=== PATIENT | male | born 1930 | race Caucasian/White ===

== ENCOUNTER 2018-01-03 22:10 | Emergency (ER) | payer MEDICARE, BC ==
[2018-01-03 22:22] VITALS: BP 168/83
[2018-01-03] MEDS ORDERED: Alum Hydrox/Mag Hydrox/Simeth 30 ML, Lidocaine 2% 15 ML PO ONE ×2 (22:39)
--- NOTE | 2018-01-03 22:45 | EDM.PDOC ---
ED HPI GENERAL MEDICAL PROBLEM - General Chief Complaint: Abdominal Pain Stated Complaint: [facility] AMB Time Seen by Provider: 01/03/18 22:30 Source of Information: Reports: Patient, Family (spouse) History Limitations: Reports: No Limitations - History of Present Illness INITIAL COMMENTS - FREE TEXT/NARRATIVE: 87-year-old male brought to the ED per ambulance with complaint of epigastric pain rating up into his throat which is strongly burning in nature. By history he has chronic reflux esophagitis worse recently. He had not yet gone to bed tonight. He reports that the pain is there off and on all day. reports they did have rather spicy barbecued ribs for dinner. For supper he only had applesauce and some peaches. Pain seems to come and go. He states he often has to use Rolaids and Tums. He is on Prilosec 20 mg once daily. Has no known coronary disease or previous HI. He states the pain does not radiate through to his back. He does not drink alcohol. He does take aspirin daily. Is never been diagnosed with hiatal hernia. Onset: Today Onset Date: 01/03/18 Onset Time: 13:00 (Has chronic gastroesophageal reflux disease and has to use Tums and Rolaids frequently.) Duration: Hour(s):, Intermittent Location: Reports: Chest (Epigastric chest rating up into his throat. Not relieved by burping or belching.) Quality: Reports: Burning, Other (Occasional increased sharp stabbing pain.) Severity: Moderate Improves with: Reports: None Worsens with: Reports: None Context: Denies: Activity, Exercise, Lifting, Sick Contact, Trauma, Other Associated Symptoms: Reports: Chest Pain, Shortness of Breath. 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.) Upper Abdominal Pain Score (Numeric/FACES): 4 - Related Data Allergies Allergy/AdvReac Type Severity Reaction Status Date / Time cefaclor [From Ceclor] AdvReac Nausea and Verified 01/03/18 22:24 Vomiting celecoxib AdvReac Bleeding Verified 01/03/18 22:24 iprindole [Iprindole] AdvReac Diarrhea Verified 01/03/18 22:24 meloxicam AdvReac Nausea and Verified 01/03/18 22:24 Vomiting Home Meds: Home Meds Finasteride [Proscar] 5 mg PO DAILY 08/15/14 [History] Levothyroxine [Synthroid] 0.088 mcg PO DAILY 08/15/14 [History] Omeprazole 20 mg PO DAILY 08/15/14 [History] Terazosin [Hytrin] 2 mg PO BEDTIME 11/21/15 [History] amLODIPine [Norvasc] 5 mg PO DAILY 11/21/15 [History] Lactobacillus Acidophilus [Probiotic] 1 cap PO DAILY 06/06/16 [History] Docusate Sodium [Stool Softener] 100 mg PO BID 11/22/16 [History] Metoprolol Succinate [Toprol XL] 100 mg PO DAILY 11/22/16 [History] Famotidine [Pepcid AC] 20 mg PO DAILY #30 tablet 01/04/18 [Rx] Past Medical History HEENT History: Reports: Impaired Vision Cardiovascular History: Reports: High Cholesterol, Hypertension. Denies: Heart Failure Respiratory History: Reports: Pneumonia, Recurrent Gastrointestinal History: Reports: GERD Genitourinary History: Reports: BPH, Prostate Disorder Musculoskeletal History: Reports: Back Pain, Chronic Psychiatric History: Reports: Dementia Endocrine/Metabolic History: Reports: Hypothyroidism - Infectious Disease History Infectious Disease History: Reports: C-Difficile Social & Family History - Family History Cardiac: Reports: CAD Oncologic: Reports: Pancreatic - Tobacco Use Smoking Status *Q: Never Smoker Second Hand Smoke Exposure: No - Caffeine Use Caffeine Use: Reports: Coffee - Alcohol Use Days Per Week of Alcohol Use: 0 - Recreational Drug Use Recreational Drug Use: No - Living Situation & Occupation Living situation: Reports: , with Spouse, with Family Occupation: Retired ED ROS GENERAL - Review of Systems Review Of Systems: See Below Constitutional: Reports: Decreased Appetite. Denies: Fever, Chills, Malaise, Weakness, Fatigue, Weight Loss HEENT: Reports: No Symptoms Respiratory: Reports: Cough. Denies: Wheezing, Pleuritic Chest Pain, Sputum, Hemoptysis Cardiovascular: Reports: Chest Pain (Occasional cough with occasional white sputum production.), Blood Pressure Problem ( She has to present illness), Dyspnea on Exertion. Denies: Claudication ( hypertension usually well- controlled with medication. ), Edema, Lightheadedness, Orthopnea, Palpitations ( Chronically) Endocrine: Reports: Fatigue GI/Abdominal: Reports: Abdominal Pain (Epigastric pain at present. Rating up into the anterior chest.), Constipation, Other (GERD.). Denies: Diarrhea ( Occasional problems with constipation), Decreased Appetite, Difficulty Swallowing, Distension, Flatus, Hematemesis, Hematochezia, Melena, Mucous in Stool, Nausea : Reports: Frequency, Other Musculoskeletal: Reports: Neck Pain, Shoulder Pain, Back Pain (Has known BPH. Usually nocturia 3.), Joint Pain Skin: Reports: No Symptoms (Wheezing TIMES.) Neurological: Reports: Other (Early signs of dementia with short-term memory loss.) Psychiatric: Reports: No Symptoms Hematologic/Lymphatic: Reports: No Symptoms ED EXAM, GI/ABD - Physical Exam Exam: See Below Exam Limited By: No Limitations General Appearance: Alert, WD/WN, Anxious, Mild Distress, Other (Seems to be getting some spastic type pain in his chest which hurts quite bad at times.) Eyes: Bilateral: Normal Appearance (No jaundice.) Throat/Mouth: Normal Inspection, Normal Lips, Normal Oropharynx Head: Atraumatic, Normocephalic Neck: Normal Inspection, Supple, Non-Tender, Full Range of Motion. No: Carotid Bruit, Lymphadenopathy (L), Lymphadenopathy (R), Thyromegaly Respiratory/Chest: No Respiratory Distress, Lungs Clear, Normal Breath Sounds, Chest Non-Tender Cardiovascular: Regular Rate, Rhythm, No Edema, No Gallop, No Murmur, No Rub. No: Normal Peripheral Pulses GI/Abdominal Exam: Soft, Non-Tender (Hyperactive bowel sounds particularly in the upper abdomen.), No Organomegaly (Mildly obese), No Abnormal Bruit, No Mass , Abnormal Bowel Sounds, Other (Male) Exam: No Hernia Extremities: Normal Inspection, Non-Tender, No Pedal Edema, Other (Evidence of osteophytic changes in his knees and hips on exam.) Neurological: Alert, Oriented, CN II-XII Intact, Normal Cognition Psychiatric: Normal Affect, Anxious Skin Exam: Warm, Dry, Intact, Normal Color, No Rash EKG INTERPRETATION EKG Date: 01/03/18 Time: 22:20 Rhythm: NSR Rate (Beats/Min): 74 [place]: Normal P-Wave: Present (First-degree AV block) QRS: Other (Early R-wave transition consider right ventricular hypertrophy/ septal hypertrophy pattern. There is Q-wave in 3 and aVF. Cannot rule out an old inferior wall myocardial infarction.) ST-T: Other (T-wave inversion in lead 3 and flattening in aVF. Nonspecific) QT: Normal EKG Interpretation Comments: Abnormal ECG Course - Vital Signs Last Recorded V/S: Last Vital Signs Temp 36.3 C 01/03/18 22:13 Pulse 75 01/03/18 22:13 Resp 15 01/03/18 22:13 BP 168/83 H 01/03/18 22:13 Pulse Ox 95 01/03/18 22:13 - Orders/Labs/Meds Orders: Active Orders 24 hr Category Date Time Status EKG Documentation Completion [RC] STAT Care 01/03/18 22:38 Active Chest 1V Frontal [CR] Stat Exams 01/03/18 22:38 Taken URINALYSIS W/MICROSCOPIC [UA W/MICROSCOPIC] [URIN] Stat Lab 01/04/18 00:16 Results Labs: Laboratory Tests 01/03/18 01/03/18 01/03/18 Range/Units 22:46 22:46 22:46 WBC 8.54 (4.23-9.07) K/mm3 RBC 4.74 (4.63-6.08) M/mm3 Hgb 14.7 (13.7-17.5) gm/L Hct 44.3 (40.1-51.0) % MCV 93.5 H (79.0-92.2) fl MCH 31.0 (25.7-32.2) pg MCHC 33.2 (32.2-35.5) g/dl RDW Std Deviation 46.1 H (35.1-43.9) fL Plt Count 167 (163-337) K/mm3 MPV 10.8 (9.4-12.3) fl Neutrophils % (Manual) 59 (40-60) % Band Neutrophils % 0 (0-10) % Lymphocytes % (Manual) 21 (20-40) % Atypical Lymphs % 3 % Monocytes % (Manual) 7 (2-10) % Eosinophils % (Manual) 10 H (0.8-7.0) % Basophils % (Manual) 0 L (0.2-1.2) Platelet Estimate Adequate Plt Morphology Comment Normal RBC Morph Comment Normal Sodium 144 (136-145) mEq/L Potassium 4.2 (3.5-5.1) mEq/L Chloride 108 H (98-107) mEq/L Carbon Dioxide 25 (21-32) mEq/L Anion Gap 15.2 H (5-15) BUN 36 H (7-18) mg/dL Creatinine 1.7 H (0.7-1.3) mg/dL Est Cr Clr Drug Dosing 28.50 mL/min Estimated GFR (MDRD) 38 (>60) mL/min BUN/Creatinine Ratio 21.2 H (14-18) Glucose 97 (83-115) mg/dL Calcium 9.4 (8.5-10.1) mg/dL Magnesium 2.4 (1.8-2.4) mg/dl Total Bilirubin 0.3 (0.2-1.0) mg/dL AST 23 (15-37) U/L ALT 22 (16-63) U/L Alkaline Phosphatase 109 (46-116) U/L CK-MB (CK-2) 1.2 (0-3.6) ng/ml Troponin I < 0.017 (0.00-0.056) ng/mL NT-Pro-B Natriuret Pep 166 (0-450) pg/mL Total Protein 7.6 (6.4-8.2) g/dl Albumin 3.8 (3.4-5.0) g/dl Globulin 3.8 gm/dL Albumin/Globulin Ratio 1.0 (1-2) Lipase 158 (73-393) U/L Urine Color (Yellow) Urine Appearance (Clear) Urine pH (5.0-8.0) Ur Specific Plain (1.005-1.030) Urine Protein (Negative) Urine Glucose (UA) (Negative) Urine Ketones (Negative) Urine Occult Blood (Negative) Urine Nitrite (Negative) Urine Bilirubin (Negative) Urine Urobilinogen (0.2-1.0) Ur Leukocyte Esterase (Negative) H. pylori IgG Antibody Negative (NEGATIVE) 01/03/18 Range/Units 23:52 WBC (4.23-9.07) K/mm3 RBC (4.63-6.08) M/mm3 Hgb (13.7-17.5) gm/L Hct (40.1-51.0) % MCV (79.0-92.2) fl MCH (25.7-32.2) pg MCHC (32.2-35.5) g/dl RDW Std Deviation (35.1-43.9) fL Plt Count (163-337) K/mm3 MPV (9.4-12.3) fl Neutrophils % (Manual) (40-60) % Band Neutrophils % (0-10) % Lymphocytes % (Manual) (20-40) % Atypical Lymphs % % Monocytes % (Manual) (2-10) % Eosinophils % (Manual) (0.8-7.0) % Basophils % (Manual) (0.2-1.2) Platelet Estimate Plt Morphology Comment RBC Morph Comment Sodium (136-145) mEq/L Potassium (3.5-5.1) mEq/L Chloride (98-107) mEq/L Carbon Dioxide (21-32) mEq/L Anion Gap (5-15) BUN (7-18) mg/dL Creatinine (0.7-1.3) mg/dL Est Cr Clr Drug Dosing mL/min Estimated GFR (MDRD) (>60) mL/min BUN/Creatinine Ratio (14-18) Glucose (83-115) mg/dL Calcium (8.5-10.1) mg/dL Magnesium (1.8-2.4) mg/dl Total Bilirubin (0.2-1.0) mg/dL AST (15-37) U/L ALT (16-63) U/L Alkaline Phosphatase (46-116) U/L CK-MB (CK-2) (0-3.6) ng/ml Troponin I (0.00-0.056) ng/mL NT-Pro-B Natriuret Pep (0-450) pg/mL Total Protein (6.4-8.2) g/dl Albumin (3.4-5.0) g/dl Globulin gm/dL Albumin/Globulin Ratio (1-2) Lipase (73-393) U/L Urine Color Yellow (Yellow) Urine Appearance Clear (Clear) Urine pH 5.5 (5.0-8.0) Ur Specific Plain 1.025 (1.005-1.030) Urine Protein Negative (Negative) Urine Glucose (UA) Negative (Negative) Urine Ketones Negative (Negative) Urine Occult Blood Negative (Negative) Urine Nitrite Negative (Negative) Urine Bilirubin Negative (Negative) Urine Urobilinogen 0.2 (0.2-1.0) Ur Leukocyte Esterase Trace H (Negative) H. pylori IgG Antibody (NEGATIVE) Meds: Medications Discontinued Medications Generic Name Dose Route Start Last Admin Trade Name Junito PRN Reason Stop Dose Admin Al Hydroxide/Mg Hydroxide 30 0 ml 01/03/18 22:39 01/03/18 22:53 ml/ Lidocaine HCl 15 ml PO 01/03/18 22:40 45 ml ONETIME ONE Administration Dicyclomine HCl 20 mg 01/03/18 23:46 01/04/18 00:09 Bentyl PO 01/03/18 23:47 20 mg ONETIME ONE Administration Famotidine 20 mg 01/03/18 23:46 01/04/18 00:09 Pepcid PO 01/03/18 23:47 20 mg ONETIME ONE Administration Famotidine Confirm 01/04/18 00:21 Pepcid Administered 01/04/18 00:22 Dose 20 mg .ROUTE .STK-MED ONE Famotidine Confirm 01/04/18 00:22 Pepcid Administered 01/04/18 00:23 Dose 20 mg .ROUTE .STK-MED ONE Hyoscyamine 0.125 mg 01/03/18 23:14 01/03/18 23:19 Hyomax-Sl SL 01/03/18 23:15 0.125 mg ONETIME ONE Administration Sucralfate 1 gm 01/03/18 23:53 01/04/18 00:09 Carafate PO 01/03/18 23:54 1 gm ONETIME ONE Administration - Radiology Interpretation Free Text/Narrative:: 87-year-old male presents to the ED with retrosternal chest burning discomfort that seems to start in the epigastrium radiating up to the throat. History suggests that it's been present off and on most of the afternoon and worse tonight. He did have barbecued ribs for dinner today. By history has a strong history of GERD and has to take Tums and Rolaids quite frequently. He has chronic hypertension ever smoker. ECG does not show any acute signs of ischemia. Just perhaps right ventricular hypertrophy/septal hypertrophy pattern from chronic hypertension. - Re-Assessments/Exams Free Text/Narrative Re-Assessment/Exam: 01/03/18 23:15 He reports that the burning discomfort in his central chest is markedly improved after GI cocktail but not gone. I will give him Levsin sublingually 1.125 mg to see if it alleviates esophageal spasm. If it does then Bentyl 20 mg by mouth may alleviate spasm further. Chest x-ray is pending. 01/03/18 23:33 port chest x-ray reveals clear lung lopez. Cardiac silhouette is within normal limits. 01/03/18 23:36 Labs reveal a normal white count at 8.54 with normal differential 59% neutrophils no bands. Hemoglobin is 14.7 with hematocrit of 44.3. MCV is mildly elevated at 93.5. Platelet count is 167,000. There is notation of 21% lymphocytes and 3% atypical lymphocytes. Also 10% eosinophils which is abnormal. Sodium is 144 with a potassium of 4.2. Chloride is 108 with a bicarbonate of 25. Anion gap is 15.2. BUNs elevated at 36 with a creatinine of 1.7. GFR is 38. Glucose is 97 calcium 9.4 magnesium normal at 2.4. Liver function normal. CK-MB is 1.2 troponin I is less than 0.017. BNP is 166. Lipase normal at 150 8H pylori antibody was negative. 01/03/18 23:45 chest pain is completely gone. It appears that the Levsin sublingually did help relieve the esophageal spasm. I will give him Bentyl 20 mg by mouth now the hopes of alleviating overnight. Also will give Pepcid 20mg po. 01/03/18 23:53 heartburn is coming back. I will try sucralfate suspension 1 g by mouth and see how effective this isn't relieving his esophagitis. Departure - Departure Time of Disposition: 00:31 Disposition: Home, Self-Care 01 Condition: Fair Clinical Impression: Non-cardiac chest pain, GERD with esophagitis - Discharge Information Prescriptions: Famotidine [Pepcid AC] 20 mg PO DAILY #30 tablet Instructions: Nonspecific Chest Pain, [id number], Gastroesophageal Reflux Disease, Adult Referrals: PCP,None [Ordering Only Provider] - Forms: ED Department Discharge Additional Instructions: Evaluation in the emergency room tonight in regards to epigastric pain that's radiating up into your throat. This has a strong burning consistency and has been off and on most of the day. History of gastroesophageal reflux disease with the use of Prilosec 20 mg every morning. Evaluations carried out through the emergency room revealed no evidence of heart related disease or any signs of heart failure. Lungs were completely clear on auscultation and on x-ray. Symptoms improved with treatment with GI cocktail and Levsin under the tongue to take away esophageal spasm. Treatment at home is to be continued Prilosec 20 mg in the morning and Pepcid before meals every night at bedtime to try and help heal the food pipe from reflux. I suspect you have a hiatal hernia which means you're vitamins that hold the stomach in place on the diaphragm are lax and the valve the The stomach and food pipe is open most the time versus being closed and only open to let food go through. What is open most the time acid can reflux up and down the food pipe at will particularly at nighttime while were resting. This burn to the lining of the food pipe it causes significant inflammation and spasm of the food pipe which causes bad chest pains. May use Tums and Rolaids as needed during the daytime. Suggest no food or very minimal fluid intake for 3 hours before going to bed. May want to see about getting the head of the bed raised about 4 inches or 2 2 x 4 hours as this little bit of slope can sometimes alleviate reflux disease during the night. If symptoms persist suggest follow-up with Dr. Lopez who can arrange for a upper GI endoscopy or scoping. - My Orders Last 24 Hours: My Active Orders 01/03/18 22:38 EKG Documentation Completion [RC] STAT Chest 1V Frontal [CR] Stat 01/04/18 00:16 URINALYSIS W/MICROSCOPIC [UA W/MICROSCOPIC] [URIN] Stat - Assessment/Plan Last 24 Hours: My Active Orders 01/03/18 22:38 EKG Documentation Completion [RC] STAT Chest 1V Frontal [CR] Stat 01/04/18 00:16 URINALYSIS W/MICROSCOPIC [UA W/MICROSCOPIC] [URIN] Stat
[2018-01-03] MEDS ORDERED: Hyoscyamine 0.125 MG Tab.SL SL ONE (23:14)
[2018-01-03] MEDS ORDERED: Famotidine 20 MG Tab PO ONE (23:46)
[2018-01-03] MEDS ORDERED: Dicyclomine 10 MG Cap PO ONE (23:46)
[2018-01-03] MEDS ORDERED: Sucralfate Suspension 1 GM/10 ML Cup PO ONE (23:53)
[2018-01-04] MEDS ORDERED: Famotidine 20 MG/2 ML SDV ONE (00:21)
[2018-01-04] MEDS ORDERED: Famotidine 20 MG Tab ONE (00:22)
--- NOTE | 2018-01-04 07:13 | CR ---
Chest: Portable view of the chest was obtained. Comparison: Prior chest x-ray of 11/22/16. Heart size is normal. Tortuous thoracic aorta is seen. Linear scar is seen within the left mid to lower lung. Lungs otherwise are clear. Slight scoliosis is noted within the spine. Bony structures are osteopenic. Impression: 1. Nothing acute is seen on portable chest x-ray. Diagnostic code #2
== END 2018-01-04 00:33 | disposition home or self-care (01) ==
LOC: JD.ED 22:10
DX: K21.0 Gastro-esophageal reflux disease with esophagitis (principal); R07.89 Other chest pain; E78.00 Pure hypercholesterolemia, unspecified; I10 Essential (primary) hypertension; E03.9 Hypothyroidism, unspecified; Z79.82 Long term (current) use of aspirin; Z88.1 Allergy status to other antibiotic agents; Z88.8 Allergy status to other drugs, medicaments and biological substances; Z79.899 Other long term (current) drug therapy
CPT/HCPCS: 36415; 71045; 71045-26; 80053; 81001; 82553; 83690; 83735; 83880; 84484; 85025; 86677; 93005; 93010; 99285; 99285-25; A9270-GY

== ENCOUNTER 2018-01-08 03:40 | Emergency (ER) | payer MEDICARE, BC ==
[2018-01-08 03:47] VITALS: BP 150/76
--- NOTE | 2018-01-08 04:00 | EDM.PDOC ---
ED HPI GENERAL MEDICAL PROBLEM - General Chief Complaint: Chest Pain Stated Complaint: [facility] Time Seen by Provider: 01/08/18 03:53 Source of Information: Reports: Patient, EMS History Limitations: Reports: Altered Mental Status (Dementia) - History of Present Illness INITIAL COMMENTS - FREE TEXT/NARRATIVE: The patient is brought by EMS with a complaint of upper left chest pain. The patient was not able to tell me when it began, however, the patient's , who arrived about 25 minutes after the patient did, tells me that it developed around 03:00 this morning, after the patient had returned to bed, and after he had coughed. The patient states that the pain "comes and goes", and the patient's states that she believes that he has had similar pain in the past. He is unable to characterize the pain, or whether it is modifiable. He denies associated symptoms, although I note that he is holding an emesis bag. The patient does not have a known history of coronary disease, but he does have a history of GERD. - Related Data Allergies Allergy/AdvReac Type Severity Reaction Status Date / Time cefaclor [From Ceclor] AdvReac Nausea and Verified 01/08/18 03:47 Vomiting celecoxib AdvReac Bleeding Verified 01/08/18 03:47 iprindole [Iprindole] AdvReac Diarrhea Verified 01/08/18 03:47 meloxicam AdvReac Nausea and Verified 01/08/18 03:47 Vomiting Home Meds: Home Meds Finasteride [Proscar] 5 mg PO DAILY 08/15/14 [History] Levothyroxine [Synthroid] 0.088 mcg PO DAILY 08/15/14 [History] Omeprazole 20 mg PO DAILY 08/15/14 [History] Terazosin [Hytrin] 2 mg PO BEDTIME 11/21/15 [History] amLODIPine [Norvasc] 5 mg PO DAILY 11/21/15 [History] Lactobacillus Acidophilus [Probiotic] 1 cap PO DAILY 06/06/16 [History] Docusate Sodium [Stool Softener] 100 mg PO BID 11/22/16 [History] Metoprolol Succinate [Toprol XL] 100 mg PO DAILY 11/22/16 [History] Famotidine [Pepcid AC] 20 mg PO DAILY #30 tablet 01/04/18 [Rx] Past Medical History HEENT History: Reports: Impaired Vision Cardiovascular History: Reports: High Cholesterol, Hypertension Gastrointestinal History: Reports: GERD Genitourinary History: Reports: BPH Musculoskeletal History: Reports: Back Pain, Chronic Neurological History: Reports: Alzheimers Disease Endocrine/Metabolic History: Reports: Hypothyroidism - Infectious Disease History Infectious Disease History: Reports: C-Difficile Social & Family History - Family History Cardiac: Reports: CAD Oncologic: Reports: Pancreatic - Tobacco Use Smoking Status *Q: Never Smoker Second Hand Smoke Exposure: No - Caffeine Use Caffeine Use: Reports: Coffee - Alcohol Use Alcohol Use History: No Days Per Week of Alcohol Use: 0 - Recreational Drug Use Recreational Drug Use: No - Living Situation & Occupation Living situation: Reports: , with Spouse, with Family Occupation: Retired ED ROS GENERAL - Review of Systems Review Of Systems: Unable To Obtain ED EXAM, GENERAL - Physical Exam Exam: See Below Exam Limited By: No Limitations General Appearance: Alert, WD/WN, Other (Kept eyes clenched shut) Ears: Normal External Exam, Hearing Grossly Normal Nose: Normal Inspection, No Blood Throat/Mouth: Normal Inspection, Normal Lips, Normal Voice, No Airway Compromise Head: Atraumatic, Normocephalic Neck: Normal Inspection, Full Range of Motion Respiratory/Chest: No Respiratory Distress, Lungs Clear, Normal Breath Sounds, No Accessory Muscle Use, Other (Reproducible tenderness to palpation of the left chest, at approximately the third or fourth intercostal space, about 1 to 2 cm to the left of the midclavicular line. No visible abnormality to this area , such as swelling, erythema, ecchymosis, or abrasion. No rub on auscultation to this area.) Cardiovascular: Normal Peripheral Pulses, Regular Rate, Rhythm, No Gallop, No JVD, No Murmur, No Rub Peripheral Pulses: 4+: Radial (L), Radial (R) GI/Abdominal: Normal Bowel Sounds, Soft, Non-Tender, No Organomegaly, No Distention, No Abnormal Bruit, No Mass (Male) Exam: Deferred Rectal (Males) Exam: Deferred Extremities: Normal Inspection, Normal Range of Motion, No Pedal Edema, Normal Capillary Refill Neurological: Alert, No Motor/Sensory Deficits Skin Exam: Warm, Dry, Intact, Normal Color, No Rash EKG INTERPRETATION EKG Date: 01/08/18 Time: 03:50 Rhythm: NSR Rate (Beats/Min): 67 [place]: Normal P-Wave: Present (1st degree AVB) QRS: Normal ST-T: Normal QT: Normal Comparison: No Change (01/03/2018) Course - Vital Signs Last Recorded V/S: Last Vital Signs Temp 36.6 C 01/08/18 03:43 Pulse 67 01/08/18 03:43 Resp 20 01/08/18 03:43 BP 150/76 H 01/08/18 03:43 Pulse Ox 91 L 01/08/18 03:43 - Orders/Labs/Meds Orders: Active Orders 24 hr Category Date Time Status EKG Documentation Completion [RC] STAT Care 01/08/18 03:55 Active Chest 1V Frontal [CR] Stat Exams 01/08/18 03:58 Taken Labs: Laboratory Tests 01/08/18 01/08/18 Range/Units 03:44 03:44 WBC 7.53 (4.23-9.07) K/mm3 RBC 4.28 L (4.63-6.08) M/mm3 Hgb 13.5 L (13.7-17.5) gm/L Hct 40.0 L (40.1-51.0) % MCV 93.5 H (79.0-92.2) fl MCH 31.5 (25.7-32.2) pg MCHC 33.8 (32.2-35.5) g/dl RDW Std Deviation 46.5 H (35.1-43.9) fL Plt Count 158 L (163-337) K/mm3 MPV 11.4 (9.4-12.3) fl Neutrophils % (Manual) 58 (40-60) % Band Neutrophils % 0 (0-10) % Lymphocytes % (Manual) 28 (20-40) % Atypical Lymphs % 0 % Monocytes % (Manual) 4 (2-10) % Eosinophils % (Manual) 10 H (0.8-7.0) % Basophils % (Manual) 0 L (0.2-1.2) Platelet Estimate Decreased RBC Morph Comment Normal Sodium 142 (136-145) mEq/L Potassium 4.0 (3.5-5.1) mEq/L Chloride 109 H (98-107) mEq/L Carbon Dioxide 23 (21-32) mEq/L Anion Gap 14.0 (5-15) BUN 24 H (7-18) mg/dL Creatinine 1.5 H (0.7-1.3) mg/dL Est Cr Clr Drug Dosing 32.30 mL/min Estimated GFR (MDRD) 44 (>60) mL/min BUN/Creatinine Ratio 16.0 (14-18) Glucose 99 (83-115) mg/dL Calcium 8.6 (8.5-10.1) mg/dL Total Bilirubin 0.4 (0.2-1.0) mg/dL AST 20 (15-37) U/L ALT 21 (16-63) U/L Alkaline Phosphatase 99 (46-116) U/L Troponin I < 0.017 (0.00-0.056) ng/mL Total Protein 6.6 (6.4-8.2) g/dl Albumin 3.3 L (3.4-5.0) g/dl Globulin 3.3 gm/dL Albumin/Globulin Ratio 1.0 (1-2) Meds: Medications Discontinued Medications Generic Name Dose Route Start Last Admin Trade Name Arsalanq PRN Reason Stop Dose Admin Acetaminophen 650 mg 01/08/18 04:13 01/08/18 04:18 Tylenol Solution PO 01/08/18 04:14 650 mg ONETIME ONE Administration - Re-Assessments/Exams Free Text/Narrative Re-Assessment/Exam: 01/08/18 04:17 Portable chest radiograph appears to be grossly normal. Cardiac silhouette is within normal limits. No pulmonary vascular congestion. No pleural effusions. No focal infiltrate. No pneumothorax. Formal read per the Radiologist pending. 01/08/18 05:03 Test results discussed with the patient and his . Today's workup is unremarkable. Because the patient's left-sided chest pain is reproducible to palpation, it appears to be musculoskeletal in etiology. I am recommending over- the-counter Tylenol or ibuprofen as needed. Departure - Departure Time of Disposition: 05:03 Disposition: Home, Self-Care 01 Condition: Good Clinical Impression: Musculoskeletal chest pain - Discharge Information Forms: ED Department Discharge Additional Instructions: Mr. Tavarez was seen in the emergency room for left-sided chest pain. Workup in the ER included blood work, an ECG, and a chest x-ray. His entire workup was unremarkable. He has not suffered a heart attack. He does not have a collapsed lung or pneumonia. His pain was reproducible by pressing on the area where it is sore, indicating that his pain is musculoskeletal in etiology. Give [id number] Tylenol or ibuprofen as needed for discomfort. If any other problems, please do not hesitate to return Mr. Tavarez to the ER. - My Orders Last 24 Hours: My Active Orders 01/08/18 03:55 EKG Documentation Completion [RC] STAT 01/08/18 03:58 Chest 1V Frontal [CR] Stat - Assessment/Plan Last 24 Hours: My Active Orders 01/08/18 03:55 EKG Documentation Completion [RC] STAT 01/08/18 03:58 Chest 1V Frontal [CR] Stat
[2018-01-08] MEDS ORDERED: Acetaminophen Susp 325 MG/10.15 ML UD Cup PO ONE (04:13)
--- NOTE | 2018-01-08 15:38 | CR ---
Chest: Portable view of the chest was obtained. Comparison: Prior chest x-ray of 01/03/18. Heart size at the upper limits of normal. Tortuous thoracic aorta is seen. Lungs are clear. Bony structures are osteopenic. Impression: 1. Incidental findings. Nothing acute is appreciated on portable chest x-ray. Diagnostic code #2
== END 2018-01-08 05:20 | disposition home or self-care (01) ==
LOC: JD.ED 03:40
DX: R07.89 Other chest pain (principal); I10 Essential (primary) hypertension; E78.00 Pure hypercholesterolemia, unspecified; K21.9 Gastro-esophageal reflux disease without esophagitis; G30.9 Alzheimer's disease, unspecified; E03.9 Hypothyroidism, unspecified; Z79.899 Other long term (current) drug therapy; Z88.1 Allergy status to other antibiotic agents; Z88.8 Allergy status to other drugs, medicaments and biological substances
CPT/HCPCS: 36415; 71045; 80053; 84484; 85025; 93005; 99285; A9270

== ENCOUNTER 2018-04-19 23:02 | Inpatient (IN) | payer MEDICARE, BC ==
[2018-04-19] MEDS ORDERED: Sodium Chloride 0.9% 10 ML Syringe FLUSH PRN (23:36)
[2018-04-19] MEDS ORDERED: Famotidine 20 MG/2 ML SDV IVPUSH ONE (23:36)
[2018-04-19] MEDS ORDERED: methylPREDNISolone Sodium Succinate 125 MG/2 ML SDV IVPUSH ONE (23:36)
--- NOTE | 2018-04-19 23:37 | EDM.PDOC ---
ED HPI GENERAL MEDICAL PROBLEM - General Chief Complaint: Respiratory Problem Stated Complaint: COUGH Time Seen by Provider: 04/19/18 23:25 Source of Information: Reports: Patient, Family, RN Notes Reviewed (Spouse) - History of Present Illness INITIAL COMMENTS - FREE TEXT/NARRATIVE: 87-year-old gentleman has been brought in by his for evaluation and treatment of severe cough. Patient does have some altered mental status, is very sleepy at time of my initial exam, not answering questions much, just wants to lay there with his eyes closed, history is obtained primarily from his who is his primary manager [employer]. She states that he did develop pneumonia about 5 or 6 weeks ago back in February and has been coughing ever since. He was seen at the clinic about 5 or 6 days ago and was not found to have pneumonia at that time. He has been taking some cough medication with codeine but this evening that is not helped. He does have history of acid reflux. He has been taking omeprazole in the morning, Pepcid in the evening but his states that he often will spit out his medications she is not sure that he is getting the full benefit of that. He has been eating and drinking relatively well but did not eat or drink as well this evening. He has not been running a fever. He did have an episode of diarrhea yesterday but none today. He has not been vomiting. Lower Chest Pain Score (Numeric/FACES): 7 - Related Data Allergies Allergy/AdvReac Type Severity Reaction Status Date / Time cefaclor [From Ceclor] AdvReac Nausea and Verified 04/19/18 23:19 Vomiting celecoxib AdvReac Bleeding Verified 04/19/18 23:19 iprindole [Iprindole] AdvReac Diarrhea Verified 04/19/18 23:19 meloxicam AdvReac Nausea and Verified 04/19/18 23:19 Vomiting Home Meds: Home Meds Finasteride [Proscar] 5 mg PO DAILY 08/15/14 [History] Levothyroxine [Synthroid] 0.88 mcg PO DAILY 08/15/14 [History] Omeprazole 20 mg PO DAILY 08/15/14 [History] Terazosin [Hytrin] 2 mg PO BEDTIME 11/21/15 [History] amLODIPine [Norvasc] 5 mg PO DAILY 11/21/15 [History] Lactobacillus Acidophilus [Probiotic] 1 cap PO DAILY 06/06/16 [History] Docusate Sodium [Stool Softener] 100 mg PO BID 11/22/16 [History] Metoprolol Succinate [Toprol XL] 100 mg PO DAILY 11/22/16 [History] Famotidine [Pepcid AC] 20 mg PO DAILY #30 tablet 01/04/18 [Rx] Past Medical History HEENT History: Reports: Impaired Vision Cardiovascular History: Reports: High Cholesterol, Hypertension Respiratory History: Reports: Bronchitis, Recurrent, Pneumonia, Recurrent Gastrointestinal History: Reports: GERD Genitourinary History: Reports: BPH Musculoskeletal History: Reports: Back Pain, Chronic Neurological History: Reports: Alzheimers Disease Psychiatric History: Reports: Dementia Endocrine/Metabolic History: Reports: Hypothyroidism - Infectious Disease History Infectious Disease History: Reports: C-Difficile Social & Family History - Family History Cardiac: Reports: CAD Oncologic: Reports: Pancreatic - Tobacco Use Smoking Status *Q: Never Smoker Second Hand Smoke Exposure: No - Caffeine Use Caffeine Use: Reports: Coffee - Recreational Drug Use Recreational Drug Use: No - Living Situation & Occupation Living situation: Reports: , with Spouse, with Family Occupation: Retired ED ROS GENERAL - Review of Systems Review Of Systems: See Below Constitutional: Denies: Fever, Chills HEENT: Denies: Sinus Problem, Throat Pain Respiratory: Reports: Shortness of Breath, Wheezing (Intermittent), Cough ( intermittentsevere, frequent ). Denies: Sputum Cardiovascular: Reports: Chest Pain (He has been having heartburn type discomfort frequently lower mid chest) GI/Abdominal: Reports: Abdominal Pain (Mild upper abdominal discomfort), Diarrhea (Yesterday), Decreased Appetite. Denies: Vomiting Neurological: Reports: Difficulty Walking (Generalized patient does walk with a walker but noted to be quite unsteady on his feet coming into the ED), Weakness ED EXAM, GENERAL - Physical Exam Exam: See Below General Appearance: Other (Patient mostly just lying with his eyes closed at time of my initial exam, it is around 11:00 in the evening, his states "he is worn out from coughing") Eye Exam: Bilateral Eye: PERRL Throat/Mouth: Normal Inspection Head: Atraumatic Neck: Supple Respiratory/Chest: Respiratory Distress (Mild tachypnea), Wheezing. No: Rhonchi (Mild intermittent) Cardiovascular: Regular Rate, Rhythm GI/Abdominal: Soft, Non-Tender. No: Guarding Back Exam: No: CVA Tenderness (L), CVA Tenderness (R) Extremities: Normal Inspection, Pedal Edema (Very mild left leg) Neurological: No Motor/Sensory Deficits Skin Exam: Warm, Dry, Normal Color EKG INTERPRETATION EKG Date: 04/20/18 Rhythm: NSR [place]: Normal P-Wave: Present QRS: Normal ST-T: Normal Course - Vital Signs Last Recorded V/S: Last Vital Signs Temp 97.6 F 04/19/18 23:08 Pulse 84 04/19/18 23:08 Resp 20 04/19/18 23:08 BP 141/117 H 04/19/18 23:08 Pulse Ox 93 L 04/20/18 01:00 - Orders/Labs/Meds Orders: Active Orders 24 hr Category Date Time Status EKG 12 Lead [EKG Documentation Completion] [RC] STAT Care 04/20/18 00:34 Active Peripheral IV Care [RC] . DIRECTED Care 04/19/18 23:36 Active RT Aerosol Therapy [RC] ASDIRECTED Care 04/20/18 00:54 Active Chest 1V Frontal [CR] Stat Exams 04/19/18 23:35 Taken Sodium Chloride 0.9% [Saline Flush] Med 04/19/18 23:36 Active 10 ml FLUSH ASDIRECTED PRN Peripheral IV Insertion Adult [OM.PC] Stat Oth 04/19/18 23:35 Ordered Medication Orders Sodium Chloride (Saline Flush) 10 ml FLUSH ASDIRECTED PRN PRN Reason: Keep Vein Open Last Admin: 04/19/18 23:46 Dose: 10 ml Labs: Laboratory Tests 04/19/18 04/19/18 04/19/18 Range/Units 23:45 23:45 23:45 WBC 10.12 H (4.23-9.07) K/mm3 RBC 4.09 L (4.63-6.08) M/mm3 Hgb 12.9 L (13.7-17.5) gm/L Hct 39.3 L (40.1-51.0) % MCV 96.1 H (79.0-92.2) fl MCH 31.5 (25.7-32.2) pg MCHC 32.8 (32.2-35.5) g/dl RDW Std Deviation 50.0 H (35.1-43.9) fL Plt Count 166 (163-337) K/mm3 MPV 11.5 (9.4-12.3) fl Neutrophils % (Manual) 67 H (40-60) % Band Neutrophils % 0 (0-10) % Lymphocytes % (Manual) 17 L (20-40) % Atypical Lymphs % 1 % Monocytes % (Manual) 10 (2-10) % Eosinophils % (Manual) 5 (0.8-7.0) % Basophils % (Manual) 0 L (0.2-1.2) Platelet Estimate Adequate Plt Morphology Comment Normal Anisocytosis 1+ slight Microcytosis 1+ slight Macrocytosis 1+ slight RBC Morph Comment Abnormal Sodium 138 (136-145) mEq/L Potassium 4.7 (3.5-5.1) mEq/L Chloride 106 (98-107) mEq/L Carbon Dioxide 21 (21-32) mEq/L Anion Gap 15.7 H (5-15) BUN 55 H (7-18) mg/dL Creatinine 2.3 H (0.7-1.3) mg/dL Est Cr Clr Drug Dosing 21.07 mL/min Estimated GFR (MDRD) 27 (>60) mL/min BUN/Creatinine Ratio 23.9 H (14-18) Glucose 127 H (83-115) mg/dL Calcium 9.3 (8.5-10.1) mg/dL Total Bilirubin 0.4 (0.2-1.0) mg/dL AST 36 (15-37) U/L ALT 36 (16-63) U/L Alkaline Phosphatase 102 (46-116) U/L Troponin I (0.00-0.056) ng/mL C-Reactive Protein 0.2 (<1.0) mg/dL NT-Pro-B Natriuret Pep (0-450) pg/mL Total Protein 6.9 (6.4-8.2) g/dl Albumin 3.6 (3.4-5.0) g/dl Globulin 3.3 gm/dL Albumin/Globulin Ratio 1.1 (1-2) 04/19/18 04/19/18 Range/Units 23:45 23:45 WBC (4.23-9.07) K/mm3 RBC (4.63-6.08) M/mm3 Hgb (13.7-17.5) gm/L Hct (40.1-51.0) % MCV (79.0-92.2) fl MCH (25.7-32.2) pg MCHC (32.2-35.5) g/dl RDW Std Deviation (35.1-43.9) fL Plt Count (163-337) K/mm3 MPV (9.4-12.3) fl Neutrophils % (Manual) (40-60) % Band Neutrophils % (0-10) % Lymphocytes % (Manual) (20-40) % Atypical Lymphs % % Monocytes % (Manual) (2-10) % Eosinophils % (Manual) (0.8-7.0) % Basophils % (Manual) (0.2-1.2) Platelet Estimate Plt Morphology Comment Anisocytosis Microcytosis Macrocytosis RBC Morph Comment Sodium (136-145) mEq/L Potassium (3.5-5.1) mEq/L Chloride (98-107) mEq/L Carbon Dioxide (21-32) mEq/L Anion Gap (5-15) BUN (7-18) mg/dL Creatinine (0.7-1.3) mg/dL Est Cr Clr Drug Dosing mL/min Estimated GFR (MDRD) (>60) mL/min BUN/Creatinine Ratio (14-18) Glucose (83-115) mg/dL Calcium (8.5-10.1) mg/dL Total Bilirubin (0.2-1.0) mg/dL AST (15-37) U/L ALT (16-63) U/L Alkaline Phosphatase (46-116) U/L Troponin I < 0.017 (0.00-0.056) ng/mL C-Reactive Protein (<1.0) mg/dL NT-Pro-B Natriuret Pep 294 (0-450) pg/mL Total Protein (6.4-8.2) g/dl Albumin (3.4-5.0) g/dl Globulin gm/dL Albumin/Globulin Ratio (1-2) Meds: Medications Generic Name Dose Route Start Last Admin Trade Name Freq PRN Reason Stop Dose Admin Sodium Chloride 10 ml 04/19/18 23:36 04/19/18 23:46 Saline Flush FLUSH 10 ml ASDIRECTED PRN Administration Keep Vein Open Discontinued Medications Generic Name Dose Route Start Last Admin Trade Name Freq PRN Reason Stop Dose Admin Albuterol/Ipratropium 3 ml 04/20/18 00:54 04/20/18 01:00 Duoneb 3.0-0.5 Mg/3 Ml NEB 04/20/18 00:55 3 ml ONETIME ONE Administration Albuterol/Ipratropium Confirm 04/20/18 00:58 Duoneb 3.0-0.5 Mg/3 Ml Administered 04/20/18 00:59 Dose 3 ml .ROUTE .STK-MED ONE Al Hydroxide/Mg Hydroxide 30 0 ml 04/20/18 00:34 04/20/18 00:41 ml/ Lidocaine HCl 15 ml PO 04/20/18 00:35 45 ml ONETIME ONE Administration Famotidine 20 mg 04/19/18 23:36 04/19/18 23:48 Pepcid IVPUSH 04/19/18 23:37 20 mg ONETIME ONE Administration Sodium Chloride 500 mls @ 999 mls/hr 04/20/18 00:34 04/20/18 00:41 Normal Saline IV 04/20/18 01:04 999 mls/hr .BOLUS ONE Administration Methylprednisolone Sodium Succinate 125 mg 04/19/18 23:36 04/19/18 23:48 Solu-Medrol IVPUSH 04/19/18 23:37 125 mg ONETIME ONE Administration - Re-Assessments/Exams Free Text/Narrative Re-Assessment/Exam: 04/20/18 01:19 White blood count very mildly elevated at 10,100, C-reactive protein normal, CXR does not show a pnuemonia. Creat 2.3, BUN 55, this is increased from labs as recently as 1-2 months ago. Suspect that a large component of his coughing could be from throat and bronchial irritation from acid reflux. Give him a GI cocktail but so far that has not helped. He did relax and settle down for a while and then the coughing does start up again. neb treatment was given just a short time ago. That has helped his wheezing some but still coughing frequently, still tachypnic, has the sound of rattling upper airway secretions that he is not able to cough out. 04/20/18 02:08 Suctioning did help but still frequent cough that keeps reocurring. Sats on arrival 91 % room air, at times he has dropped his sats to 87 to 88 5 but than they leiva go back up to low 90's. He is not well enough to go home at this time. Children have been encouraging NH placement. He appears to be a good candidate for NH placement at this time. Departure - Departure Time of Disposition: 01:55 Disposition: Refer to Observation Condition: Poor Clinical Impression: Bronchitis, Acute renal insufficiency, Weakness generalized, Dehydration, Hypoxia - Discharge Information ED Communication - Discussed Case With (1) Discussed Case With (1): Admitting Provider (Dr Hunt, decision to admit at about 02:00.) - My Orders Last 24 Hours: My Active Orders 04/19/18 23:35 Chest 1V Frontal [CR] Stat Peripheral IV Insertion Adult [OM.PC] Stat 04/19/18 23:36 Peripheral IV Care [RC] . DIRECTED Sodium Chloride 0.9% [Saline Flush] 10 ml FLUSH ASDIRECTED PRN 04/20/18 00:34 EKG 12 Lead [EKG Documentation Completion] [RC] STAT 04/20/18 00:54 RT Aerosol Therapy [RC] ASDIRECTED - Assessment/Plan Last 24 Hours: My Active Orders 04/19/18 23:35 Chest 1V Frontal [CR] Stat Peripheral IV Insertion Adult [OM.PC] Stat 04/19/18 23:36 Peripheral IV Care [RC] . DIRECTED Sodium Chloride 0.9% [Saline Flush] 10 ml FLUSH ASDIRECTED PRN 04/20/18 00:34 EKG 12 Lead [EKG Documentation Completion] [RC] STAT 04/20/18 00:54 RT Aerosol Therapy [RC] ASDIRECTED
[2018-04-20] MEDS ORDERED: Alum Hydrox/Mag Hydrox/Simeth 30 ML, Lidocaine 2% 15 ML PO ONE ×2 (00:34)
[2018-04-20] MEDS ORDERED: Sodium Chloride 0.9% 500 ML IV ONE (00:34)
[2018-04-20] MEDS ORDERED: Albuterol/Ipratropium 3.0-0.5 MG/3 ML Neb Soln NEB ONE (00:54)
[2018-04-20] MEDS ORDERED: Albuterol/Ipratropium 3.0-0.5 MG/3 ML Neb Soln ONE (00:58)
[2018-04-20] MEDS ORDERED: Lactated Ringers 500 ML IV ONE (03:16)
[2018-04-20] MEDS: guaiFENesin 600 MG Tab.ER PO SCH ×3 (03:26→20:18)
[2018-04-20] MEDS ORDERED: Lactated Ringers 1,000 ML IV SCH (04:30)
--- NOTE | 2018-04-20 06:41 | PCM.HP ---
H&P History of Present Illness - General Date of Service: 04/20/18 Admit Problem/Dx: Admission Diagnosis/Problem Admission Diagnosis/Problem Cough in adult Source of Information: Patient, Old Records, Provider, RN, RN Notes Reviewed History Limitations: Reports: No Limitations - History of Present Illness Initial Comments - Free Text/Narative: Alvarez Tavarez is an 87 yo male who was brought to our ED on 04/19/18 during late night hours by his due to his severe cough. He does have an altered mental status and is noted to be sleepy by the ED provider. History is obtained primarily from the patient's who is his primary medical review specialist. She reports he had pneumonia 5 or 6 weeks prior in February has been coughing ever since. He did go to the clinic 5 or 6 days ago and was evaluated at that time. He did not have pneumonia then. His been taking some cough medication with codeine but that has not helped. Other history of acid reflux and is on omeprazole in the morning and Pepcid in the evening. His does note that he often spits out his medications. He had been eating and drinking relatively where all up until the day he was seen. No fever. One episode of diarrhea on but none since. No vomiting. He does have a history of C. difficile. In the ER twelve-lead EKG is obtained which shows a normal sinus rhythm with no ectopy per the ED provider. Pulse this 84. Temperature 97.6. Respirations 20. Blood pressure 141/117. Pulse ox 93% He does have a mild leukocytosis at 10.12. Hemoglobin is low at 12.9. Hematocrit 39.3. He is macrocytic. Platelet 266,000. Neutrophils are elevated at 67%. There is no bandemia. Sodium is 138. Potassium 4.7. Chloride was 6. A 21. Anion gap was slightly high at 15.7. BUN is hi at 55. Creatinine 2.3. EGFR is 27. Glucose is 127. Calcium 9.3. Total bilirubin 0.4. Liver enzymes looked good with AST at 36, ALT 36, alkaline phosphatase at 102. troponin is negative at less than 0.017. BNP is good at 294. CRP is 0.2. Protein is good at 6.9. Albumin 3. He is given a DuoNeb, Pepcid, Solu-Medrol, and a GI cocktail. He was suctioned withminimal improvement. In the sats were noted to be 87-88% but then rebounded into the 90s. The ED provider does note the children have been encouraging fci placement He subsequently admitted to the medical floor observation status on telemetry. He carries a history of: HLD, HTN, recurrenbronchitis, reeumonia, MISHEL PAIN< Alzheimer's disease, hypothyroidism, history of C. difficile infection. He was never a smoker. He is a DNR/DNI. His PCP is Dr. Yates. Lower Chest Pain Score (Numeric/FACES): 7 - Related Data Allergies/Adverse Reactions: Allergies Allergy/AdvReac Type Severity Reaction Status Date / Time cefaclor [From Ceclor] AdvReac Nausea and Verified 04/19/18 23:19 Vomiting celecoxib AdvReac Bleeding Verified 04/19/18 23:19 iprindole [Iprindole] AdvReac Diarrhea Verified 04/19/18 23:19 meloxicam AdvReac Nausea and Verified 04/19/18 23:19 Vomiting Home Medications: Home Meds Finasteride [Proscar] 5 mg PO DAILY 08/15/14 [History] Levothyroxine [Synthroid] 0.88 mcg PO DAILY 08/15/14 [History] Omeprazole 20 mg PO DAILY 08/15/14 [History] Terazosin [Hytrin] 2 mg PO BEDTIME 11/21/15 [History] amLODIPine [Norvasc] 5 mg PO DAILY 11/21/15 [History] Lactobacillus Acidophilus [Probiotic] 1 cap PO DAILY 06/06/16 [History] Docusate Sodium [Stool Softener] 100 mg PO BID 11/22/16 [History] Metoprolol Succinate [Toprol XL] 100 mg PO DAILY 11/22/16 [History] Famotidine [Pepcid AC] 20 mg PO DAILY #30 tablet 01/04/18 [Rx] Past Medical History HEENT History: Reports: Impaired Vision Other HEENT History: glasses not present Cardiovascular History: Reports: High Cholesterol, Hypertension Respiratory History: Reports: Bronchitis, Recurrent, Pneumonia, Recurrent Gastrointestinal History: Reports: GERD Other Gastrointestinal History: hernia and CDIFF Genitourinary History: Reports: BPH Other Genitourinary History: incontinent and continent Musculoskeletal History: Reports: Back Pain, Chronic Neurological History: Reports: Alzheimers Disease Psychiatric History: Reports: Dementia Endocrine/Metabolic History: Reports: Hypothyroidism - Infectious Disease History Infectious Disease History: Reports: C-Difficile - Past Surgical History HEENT Surgical History: Reports: Tonsillectomy Cardiovascular Surgical History: Reports: None Respiratory Surgical History: Reports: None GI Surgical History: Reports: Colonoscopy Endocrine Surgical History: Reports: None Neurological Surgical History: Reports: None Musculoskeletal Surgical History: Reports: None Social & Family History - Family History Cardiac: Reports: CAD Oncologic: Reports: Pancreatic - Tobacco Use Smoking Status *Q: Never Smoker Years of Tobacco use: 2 Packs/Tins Daily: 2 Used Tobacco, but Quit: Yes Month/Year Tobacco Last Used: 65 years ago Second Hand Smoke Exposure: No - Caffeine Use Caffeine Use: Reports: Coffee - Recreational Drug Use Recreational Drug Use: No - Living Situation & Occupation Living situation: Reports: , with Spouse, with Family Occupation: Retired H&P Review of Systems - Review of Systems: Review Of Systems: See Below General: Reports: Malaise, Weakness, Fatigue, Decreased Appetite. Denies: Fever , Chills, Night Sweats HEENT: Reports: Post Nasal Drip. Denies: Headaches, Rhinitis, Sinus Congestion , Sore Throat, Visual Changes Pulmonary: Reports: Wheezing, Pleuritic Chest Pain, Cough. Denies: Shortness of Breath, Sputum, Hemoptysis Cardiovascular: Reports: No Symptoms, Chest Pain. Denies: Palpitations, Dyspnea on Exertion, Edema, Lightheadedness, Syncope Gastrointestinal: Reports: No Symptoms. Denies: Abdominal Pain, Constipation, Diarrhea, Nausea, Vomiting Genitourinary: Reports: Frequency. Denies: Dysuria Musculoskeletal: Reports: No Symptoms Skin: Reports: No Symptoms Psychiatric: Reports: Confusion (at baseline although states worse lately ) . Denies: Mood Lability, Anxiety Neurological: Reports: Difficulty Walking, Weakness, Gait Disturbance. Denies: Headache, Numbness, Pre-Existing Deficit, Tingling, Tremors, Trouble Speaking, Change in Speech Hematologic/Lymphatic: Reports: No Symptoms Immunologic: Reports: No Symptoms Exam - Exam Exam: See Below - Vital Signs Vital Signs: Last Vital Signs Temp 98.8 F 04/20/18 05:25 Pulse 97 04/20/18 05:25 Resp 24 H 04/20/18 05:25 BP 135/79 04/20/18 05:25 Pulse Ox 92 L 04/20/18 05:25 Weight: 180 lb 12.8 oz - Exam Quality Assessment: Supplemental Oxygen, DVT Prophylaxis General: Alert, Cooperative, Mild Distress (coughing attacks ), Obtunded. No: Oriented HEENT: Conjunctiva Clear, EACs Clear, EOMI, Hearing Intact, Mucosa Moist & [place] , Nares Patent, Posterior Pharynx Clear, PERRLA Neck: Supple, Trachea Midline. No: JVD, Thyromegaly Lungs: Normal Respiratory Effort, Wheezing (mild ). No: Rales, Rhonchi Cardiovascular: Regular Rate, Regular Rhythm GI/Abdominal Exam: Normal Bowel Sounds, Soft, Non-Tender, Pelvis Stable (Male) Exam: Deferred Rectal (Males) Exam: Deferred Back Exam: Normal Inspection, Full Range of Motion Extremities: Normal Inspection, Normal Range of Motion, Non-Tender, No Pedal Edema, Normal Capillary Refill Peripheral Pulses: 3+: Radial (L), Radial (R), Posterior Tibial (L), Posterior Tibial (R), Dorsalis Pedis (L), Dorsalis Pedis (R) Skin: Warm, Dry, Intact Neurological: Cranial Nerves Intact (grossly ) Neuro Extensive - Mental Status: Alert, Normal Mood/Affect. No: Oriented x3 Psychiatric: Alert, Normal Affect, Normal Mood - Patient Data Lab Results Last 24 hrs: Laboratory Results - last 24 hr 04/19/18 04/19/18 04/19/18 Range/Units 23:45 23:45 23:45 WBC 10.12 H (4.23-9.07) K/mm3 RBC 4.09 L (4.63-6.08) M/mm3 Hgb 12.9 L (13.7-17.5) gm/L Hct 39.3 L (40.1-51.0) % MCV 96.1 H (79.0-92.2) fl MCH 31.5 (25.7-32.2) pg MCHC 32.8 (32.2-35.5) g/dl RDW Std Deviation 50.0 H (35.1-43.9) fL Plt Count 166 (163-337) K/mm3 MPV 11.5 (9.4-12.3) fl Neutrophils % (Manual) 67 H (40-60) % Band Neutrophils % 0 (0-10) % Lymphocytes % (Manual) 17 L (20-40) % Atypical Lymphs % 1 % Monocytes % (Manual) 10 (2-10) % Eosinophils % (Manual) 5 (0.8-7.0) % Basophils % (Manual) 0 L (0.2-1.2) Platelet Estimate Adequate Plt Morphology Comment Normal Anisocytosis 1+ slight Microcytosis 1+ slight Macrocytosis 1+ slight RBC Morph Comment Abnormal Sodium 138 (136-145) mEq/L Potassium 4.7 (3.5-5.1) mEq/L Chloride 106 (98-107) mEq/L Carbon Dioxide 21 (21-32) mEq/L Anion Gap 15.7 H (5-15) BUN 55 H (7-18) mg/dL Creatinine 2.3 H (0.7-1.3) mg/dL Est Cr Clr Drug Dosing 21.07 mL/min Estimated GFR (MDRD) 27 (>60) mL/min BUN/Creatinine Ratio 23.9 H (14-18) Glucose 127 H (83-115) mg/dL Calcium 9.3 (8.5-10.1) mg/dL Total Bilirubin 0.4 (0.2-1.0) mg/dL AST 36 (15-37) U/L ALT 36 (16-63) U/L Alkaline Phosphatase 102 (46-116) U/L Troponin I (0.00-0.056) ng/mL C-Reactive Protein 0.2 (<1.0) mg/dL NT-Pro-B Natriuret Pep (0-450) pg/mL Total Protein 6.9 (6.4-8.2) g/dl Albumin 3.6 (3.4-5.0) g/dl Globulin 3.3 gm/dL Albumin/Globulin Ratio 1.1 (1-2) 04/19/18 04/19/18 Range/Units 23:45 23:45 WBC (4.23-9.07) K/mm3 RBC (4.63-6.08) M/mm3 Hgb (13.7-17.5) gm/L Hct (40.1-51.0) % MCV (79.0-92.2) fl MCH (25.7-32.2) pg MCHC (32.2-35.5) g/dl RDW Std Deviation (35.1-43.9) fL Plt Count (163-337) K/mm3 MPV (9.4-12.3) fl Neutrophils % (Manual) (40-60) % Band Neutrophils % (0-10) % Lymphocytes % (Manual) (20-40) % Atypical Lymphs % % Monocytes % (Manual) (2-10) % Eosinophils % (Manual) (0.8-7.0) % Basophils % (Manual) (0.2-1.2) Platelet Estimate Plt Morphology Comment Anisocytosis Microcytosis Macrocytosis RBC Morph Comment Sodium (136-145) mEq/L Potassium (3.5-5.1) mEq/L Chloride (98-107) mEq/L Carbon Dioxide (21-32) mEq/L Anion Gap (5-15) BUN (7-18) mg/dL Creatinine (0.7-1.3) mg/dL Est Cr Clr Drug Dosing mL/min Estimated GFR (MDRD) (>60) mL/min BUN/Creatinine Ratio (14-18) Glucose (83-115) mg/dL Calcium (8.5-10.1) mg/dL Total Bilirubin (0.2-1.0) mg/dL AST (15-37) U/L ALT (16-63) U/L Alkaline Phosphatase (46-116) U/L Troponin I < 0.017 (0.00-0.056) ng/mL C-Reactive Protein (<1.0) mg/dL NT-Pro-B Natriuret Pep 294 (0-450) pg/mL Total Protein (6.4-8.2) g/dl Albumin (3.4-5.0) g/dl Globulin gm/dL Albumin/Globulin Ratio (1-2) Result Diagrams: 04/20/18 09:50 04/20/18 09:50 - Problem List (1) HLD (hyperlipidemia) SNOMED Code(s): 34897002 ICD Code: E78.5 - HYPERLIPIDEMIA, UNSPECIFIED Status: Chronic Priority: Low Current Visit: No Qualifiers: Hyperlipidemia type: unspecified Qualified Code(s): E78.5 - Hyperlipidemia , unspecified (2) HTN (hypertension) SNOMED Code(s): 34673017 ICD Code: I10 - ESSENTIAL (PRIMARY) HYPERTENSION Status: Chronic Priority : Low Current Visit: No Qualifiers: Hypertension type: unspecified Qualified Code(s): I10 - Essential (primary ) hypertension (3) Chronic back pain SNOMED Code(s): 249349261 ICD Code: M54.9 - DORSALGIA, UNSPECIFIED; G89.29 - OTHER CHRONIC PAIN Status: Chronic Priority: Low Current Visit: No Qualifiers: Back pain location: back pain in unspecified location Back pain laterality : unspecified Qualified Code(s): M54.9 - Dorsalgia, unspecified; G89.29 - Other chronic pain (4) Alzheimer disease SNOMED Code(s): 31477998 ICD Code: G30.9 - ALZHEIMER'S DISEASE, UNSPECIFIED; F02.80 - DEMENTIA IN OTH DISEASES CLASSD ELSWHR W/O BEHAVRL DISTURB Status: Chronic Priority: Medium Current Visit: Yes Qualifiers: Alzheimer's disease onset: unspecified onset Dementia behavioral disturbance: without behavioral disturbance Qualified Code(s): G30.9 - Alzheimer's disease, unspecified; F02.80 - Dementia in other diseases classified elsewhere without behavioral disturbance (5) Dementia SNOMED Code(s): 90748466 ICD Code: F03.90 - UNSPECIFIED DEMENTIA WITHOUT BEHAVIORAL DISTURBANCE Status: Chronic Priority: Medium Current Visit: Yes Qualifiers: Dementia type: Alzheimer's disease Alzheimer's disease onset: unspecified onset Dementia behavioral disturbance: without behavioral disturbance Qualified Code(s): G30.9 - Alzheimer's disease, unspecified; F02.80 - Dementia in other diseases classified elsewhere without behavioral disturbance (6) Hypothyroidism SNOMED Code(s): 61845532 ICD Code: E03.9 - HYPOTHYROIDISM, UNSPECIFIED Status: Chronic Priority: Low Current Visit: No Qualifiers: Hypothyroidism type: unspecified Qualified Code(s): E03.9 - Hypothyroidism , unspecified (7) Acute renal insufficiency SNOMED Code(s): 820239111 ICD Code: N28.9 - DISORDER OF KIDNEY AND URETER, UNSPECIFIED Status: Acute Priority: High Current Visit: Yes (8) Dehydration SNOMED Code(s): 35720900 ICD Code: E86.0 - DEHYDRATION Status: Acute Priority: High Current Visit: Yes (9) Hypoxia SNOMED Code(s): 672110094 ICD Code: R09.02 - HYPOXEMIA Status: Acute Priority: High Current Visit : Yes (10) Weakness generalized SNOMED Code(s): 72449922 ICD Code: R53.1 - WEAKNESS Status: Acute Priority: High Current Visit: Yes (11) Benign prostatic hyperplasia SNOMED Code(s): 880335526 ICD Code: N40.0 - BENIGN PROSTATIC HYPERPLASIA WITHOUT LOWER URINRY TRACT SYMP Status: Chronic Priority: Low Current Visit: No Qualifiers: Lower urinary tract symptom presence: symptoms present (12) GERD with esophagitis SNOMED Code(s): 974795559 ICD Code: K21.0 - GASTRO-ESOPHAGEAL REFLUX DISEASE WITH ESOPHAGITIS Status : Chronic Priority: Medium Current Visit: Yes Problem List Initiated/Reviewed/Updated: Yes Orders Last 24hrs: Active Orders 24 hr Category Date Time Status Admission Status [Patient Status] [ADT] Routine ADT 04/20/18 02:16 Active Bedrest Bathroom Privileges [RC] ASDIRECTED Care 04/20/18 03:18 Active EKG 12 Lead [EKG Documentation Completion] [RC] STAT Care 04/20/18 00:34 Active Oxygen Therapy [RC] ASDIRECTED Care 04/20/18 02:43 Active Peripheral IV Care [RC] Q2HR Care 04/19/18 23:36 Active RT Aerosol Therapy [RC] ASDIRECTED Care 04/20/18 00:54 Active Consult to Deportation Officer [CONS] Routine Cons 04/20/18 03:20 Active NPO [Nothing Per Oral Diet] [DIET] Diet 04/20/18 Breakfast Active Chest 1V Frontal [CR] Stat Exams 04/19/18 23:35 Taken UA W/MICROSCOPIC [URIN] Routine Lab 04/20/18 03:19 Ordered Lactated Ringers [Ringers, Lactated] 1,000 ml Med 04/20/18 04:30 Active IV ASDIRECTED Sodium Chloride 0.9% [Saline Flush] Med 04/19/18 23:36 Active 10 ml FLUSH ASDIRECTED PRN guaiFENesin [Mucinex] Med 04/20/18 03:30 Active 600 mg PO BID Peripheral IV Insertion Adult [OM.PC] Stat Oth 04/19/18 23:35 Ordered GOMEZ Hose [Antiembolic Hose] [OM.PC] Routine Oth 04/20/18 03:18 Ordered Resuscitation Status Routine Resus Stat 04/20/18 03:20 Ordered Medication Orders Guaifenesin (Mucinex) 600 mg PO BID JODI Last Admin: 04/20/18 03:26 Dose: 600 mg Lactated Ringer's (Ringers, Lactated) 1,000 mls @ 75 mls/hr IV ASDIRECTED [facility] Sodium Chloride (Saline Flush) 10 ml FLUSH ASDIRECTED PRN PRN Reason: Keep Vein Open Last Admin: 04/19/18 23:46 Dose: 10 ml Assessment/Plan Comment:: I/P: Acute: Cough -Reports worsening cough over past few days -Evaluated at clinic 5 or 6 days ago -Malaise, fatigue, weakness, one day of diarrhea which has resolved, chest pain from coughing, but no fever, nausea, or vomiting -Reports history of post-nasal drip, allergies -Very mild Leukocytosis - 10.12 -CRP WNL - 0.2 -CXR on 04/19/18 shows nothing acute per Dr. 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 for swallow - No concerns - resume diet Acute kidney injury -Baseline appears to be WNL -BUN 55 -Creatininie 2.3 -eGFR 27 -IV fluids as ordered -Avoid nephrotoxic agents Dehydration -Anion gap 15.7 -Concentrated urine -Kidney function as above -IV fluids Chronic: HLD HTN Recurrent bronchitis Recurrent pneumonia GERD BPH Back pain Alzheimer's disease Dementia Hypothyroidism Prior C-Difficile infection Plan: Admit to medical floor observation on telemetry - upgrade to inpatent Home meds as ordered Routine AM labs GI prophylaxis: Home PPI and H2 lucretia DVT Prophylaxis: SCDs PT/OT SW for discharge planning: will need SNF placement Code status: DNR/DNI; PCP: Dr. Yates
--- NOTE | 2018-04-20 07:31 | CR ---
Chest: Portable view of the chest was obtained. Comparison: Prior chest x-ray of 01/08/18. Heart size is normal. Tortuous thoracic aorta is seen. Nodular density is seen within the right mid to lower lung most likely representing scarring. No acute parenchymal densities are seen. Bony structures are osteopenic but grossly intact. Impression: 1. Nothing acute is seen on portable chest x-ray. Diagnostic code #2
[2018-04-20] MEDS ORDERED: Polyethylene Glycol 3350 Powder 17 GM Packet PO PRN (08:29)
[2018-04-20] MEDS ORDERED: Albuterol/Ipratropium 3.0-0.5 MG/3 ML Neb Soln NEB PRN (08:29)
[2018-04-20] MEDS ORDERED: Ondansetron 4 MG/2 ML SDV IV PRN (08:29)
[2018-04-20] MEDS ORDERED: Bisacodyl 5 MG Tab PO PRN (08:29)
[2018-04-20] MEDS ORDERED: Acetaminophen 325 MG Tab PO PRN (08:29)
[2018-04-20] MEDS ORDERED: Docusate Sodium 100 MG Cap PO PRN (08:29)
[2018-04-20] MEDS ORDERED: Ondansetron 4 MG Tab.DIS PO PRN (08:29)
[2018-04-20] MEDS ORDERED: Metoprolol Tartrate 5 MG/5 ML SDV IVPUSH PRN (08:33)
[2018-04-20] MEDS ORDERED: hydrALAZINE 20 MG/ML SDV IVPUSH PRN (08:33)
[2018-04-20] MEDS ORDERED: Famotidine 20 MG Tab PO SCH (09:00)
[2018-04-20] MEDS: Finasteride 5 MG Tab PO SCH (09:37)
[2018-04-20] MEDS: Metoprolol Succinate 100 MG Tab.ER PO SCH (09:37)
[2018-04-20] MEDS: LACTOBACILLUS ACIDOPHILUS PO SCH (09:37)
[2018-04-20] MEDS: Levothyroxine 88 MCG Tab PO SCH (09:37)
[2018-04-20] MEDS: Docusate Sodium 100 MG Cap PO SCH ×2 (09:43→20:18)
[2018-04-20] MEDS: amLODIPine 5 MG Tab PO SCH (09:44)
[2018-04-20] MEDS: Sodium Chloride 0.9% 1,000 ML IV SCH ×2 (09:55→10:01)
[2018-04-20] MEDS ORDERED: Ampicillin 1 GM in Sodium Chloride 0.9% 100 ML IV SCH (10:00)
[2018-04-20] MEDS ORDERED: Sodium Chloride 0.9% 1,000 ML IV SCH ×3 (11:00→22:00)
[2018-04-20] MEDS: Omeprazole 20 MG Cap.CR PO SCH (16:27)
[2018-04-20] MEDS ORDERED: LORazepam 2 MG/ML SDV IVPUSH PRN ×2 (19:58→20:04)
[2018-04-20] MEDS: Donepezil 10 MG Tab PO SCH (20:18)
[2018-04-20] MEDS ORDERED: Haloperidol Lactate 5 MG/ML SDV IVPUSH SCH (21:00)
--- NOTE | 2018-04-21 06:45 | PCM.PN ---
- General Info Date of Service: 04/21/18 Admission Dx/Problem (Free Text): Admission Diagnosis/Problem Admission Diagnosis/Problem Cough in adult Subjective Update: In to see Alvarez multiple times today. He has been having some difficulty with coughing and was less responsive today. He had a chest x-ray earlier in the day and nothing but atelectasis was noted. Nursing then reported that the patient was drinking fluids and began to cough. Portable CXR was obtained over concerns of aspiration and nothing acute was appreciated. CM was in to see patient and code status was discussed. He has now began to respond more throughout the day. He is still very confused but is answering questions. I did contact his son who is an ED physician in [place] and discussed plan of care with his and daughter, all of whom are medical POAs. We discussed the possibility of aspiration and how we would usually start antibiotics. It is decided by the family collectively that they would like Alvarez to be made comfortable and not continue treatment. We will discontinue telemetry, PT/OT, lab draws, IV fluids, and allow the patient to eat what he wants. He will be discharged tomorrow to [facility] on comfort care. Functional Status: Reports: Pain Controlled, Tolerating Diet, Urinating. Denies : Ambulating - Review of Systems General: Reports: Weakness, Fatigue, Malaise. Denies: Fever, Chills HEENT: Reports: Sore Throat Pulmonary: Reports: Cough, Wheezing. Denies: Shortness of Breath, Sputum Cardiovascular: Reports: No Symptoms. Denies: Chest Pain Gastrointestinal: Reports: No Symptoms. Denies: Abdominal Pain, Constipation, Diarrhea, Nausea, Vomiting Genitourinary: Reports: No Symptoms Musculoskeletal: Reports: No Symptoms Skin: Reports: No Symptoms Neurological: Reports: Confusion, Pre-Existing Deficit, Difficulty Walking, Weakness, Gait Disturbance Psychiatric: Reports: No Symptoms - Patient Data Vitals - Most Recent: Last Vital Signs Temp 97.7 F 04/20/18 20:13 Pulse 83 04/21/18 04:35 Resp 18 04/21/18 04:35 BP 139/68 04/21/18 04:35 Pulse Ox 91 L 04/21/18 04:35 Weight - Most Recent: 181 lb 8 oz I&O - Last 24 Hours: Intake & Output 04/20/18 04/20/18 04/21/18 14:59 22:59 06:59 Intake Total 425 622 Balance 425 622 Lab Results Last 24 Hours: Laboratory Results - last 24 hr 04/19/18 04/20/18 04/20/18 Range/Units 23:45 03:45 09:50 WBC 9.67 H (4.23-9.07) K/mm3 RBC 4.09 L (4.63-6.08) M/mm3 Hgb 13.0 L (13.7-17.5) gm/L Hct 39.0 L (40.1-51.0) % MCV 95.4 H (79.0-92.2) fl MCH 31.8 (25.7-32.2) pg MCHC 33.3 (32.2-35.5) g/dl RDW Std Deviation 49.0 H (35.1-43.9) fL Plt Count 156 L (163-337) K/mm3 MPV 11.2 (9.4-12.3) fl Neut % (Auto) 90.0 H (34.0-67.9) % Lymph % (Auto) 8.1 L (21.8-53.1) % [place] % (Auto) 1.6 L (5.3-12.2) % Eos % (Auto) 0 L (0.8-7.0) Baso % (Auto) 0.1 (0.1-1.2) % Neut # (Auto) 8.71 H (1.78-5.38) K/mm3 Lymph # (Auto) 0.78 L (1.32-3.57) K/mm3 [place] # (Auto) 0.15 L (0.30-0.82) K/mm3 Eos # (Auto) 0.00 L (0.04-0.54) K/mm3 Baso # (Auto) 0.01 (0.01-0.08) K/mm3 Manual Slide Review Abnormal smear Sodium (136-145) mEq/L Potassium (3.5-5.1) mEq/L Chloride (98-107) mEq/L Carbon Dioxide (21-32) mEq/L Anion Gap (5-15) BUN (7-18) mg/dL Creatinine (0.7-1.3) mg/dL Est Cr Clr Drug Dosing mL/min Estimated GFR (MDRD) (>60) mL/min BUN/Creatinine Ratio (14-18) Glucose (83-115) mg/dL Calcium (8.5-10.1) mg/dL Magnesium 2.4 (1.8-2.4) mg/dl C-Reactive Protein (<1.0) mg/dL Urine Color (Yellow) Urine Appearance (Clear) Urine pH (5.0-8.0) Ur Specific [place] (1.005-1.030) Urine Protein (Negative) Urine Glucose (UA) (Negative) Urine Ketones (Negative) Urine Occult Blood (Negative) Urine Nitrite (Negative) Urine Bilirubin (Negative) Urine Urobilinogen (0.2-1.0) Ur Leukocyte Esterase (Negative) Urine RBC (0-5) /hpf Urine WBC (0-5) /hpf Ur Epithelial Cells (0-5) /hpf Urine Bacteria (FEW) /hpf Hyaline Casts (0-5) /lpf Urine Mucus (FEW) /hpf Mycoplasma pneumon IgM Negative (NEGATIVE) 04/20/18 04/20/18 Range/Units 09:50 11:25 WBC (4.23-9.07) K/mm3 RBC (4.63-6.08) M/mm3 Hgb (13.7-17.5) gm/L Hct (40.1-51.0) % MCV (79.0-92.2) fl MCH (25.7-32.2) pg MCHC (32.2-35.5) g/dl RDW Std Deviation (35.1-43.9) fL Plt Count (163-337) K/mm3 MPV (9.4-12.3) fl Neut % (Auto) (34.0-67.9) % Lymph % (Auto) (21.8-53.1) % [place] % (Auto) (5.3-12.2) % Eos % (Auto) (0.8-7.0) Baso % (Auto) (0.1-1.2) % Neut # (Auto) (1.78-5.38) K/mm3 Lymph # (Auto) (1.32-3.57) K/mm3 [place] # (Auto) (0.30-0.82) K/mm3 Eos # (Auto) (0.04-0.54) K/mm3 Baso # (Auto) (0.01-0.08) K/mm3 Manual Slide Review Sodium 137 (136-145) mEq/L Potassium 4.6 (3.5-5.1) mEq/L Chloride 106 (98-107) mEq/L Carbon Dioxide 18 L (21-32) mEq/L Anion Gap 17.6 H (5-15) BUN 49 H (7-18) mg/dL Creatinine 2.0 H (0.7-1.3) mg/dL Est Cr Clr Drug Dosing 24.23 mL/min Estimated GFR (MDRD) 32 (>60) mL/min BUN/Creatinine Ratio 24.5 H (14-18) Glucose 140 H (83-115) mg/dL Calcium 9.2 (8.5-10.1) mg/dL Magnesium (1.8-2.4) mg/dl C-Reactive Protein < 0.2 (<1.0) mg/dL Urine Color Yellow (Yellow) Urine Appearance Clear (Clear) Urine pH 5.5 (5.0-8.0) Ur Specific [place] > or = 1.030 (1.005-1.030) Urine Protein Trace H (Negative) Urine Glucose (UA) Negative (Negative) Urine Ketones Negative (Negative) Urine Occult Blood Negative (Negative) Urine Nitrite Negative (Negative) Urine Bilirubin Negative (Negative) Urine Urobilinogen 0.2 (0.2-1.0) Ur Leukocyte Esterase Trace H (Negative) Urine RBC 0-5 (0-5) /hpf Urine WBC 5-10 H (0-5) /hpf Ur Epithelial Cells 0-5 (0-5) /hpf Urine Bacteria Few (FEW) /hpf Hyaline Casts 0-5 (0-5) /lpf Urine Mucus Moderate H (FEW) /hpf Mycoplasma pneumon IgM (NEGATIVE) Med Orders - Current: Current Medications Acetaminophen (Tylenol) 650 mg PO Q4H PRN PRN Reason: Pain (Mild 1-3)/fever Albuterol/Ipratropium (Duoneb 3.0-0.5 Mg/3 Ml) 3 ml NEB Q4H PRN PRN Reason: Shortness Of Breath/wheezing Last Admin: 04/20/18 14:21 Dose: 3 ml Amlodipine Besylate (Norvasc) 5 mg PO DAILY [facility] Last Admin: 04/20/18 09:44 Dose: 5 mg Bisacodyl (Dulcolax) 5 mg PO DAILY PRN PRN Reason: Constipation Docusate Sodium (Colace) 100 mg PO BID PRN PRN Reason: Constipation Docusate Sodium (Colace) 100 mg PO BID [facility] Last Admin: 04/20/18 20:18 Dose: 100 mg Donepezil HCl (Aricept) 10 mg PO BEDTIME [facility] Last Admin: 04/20/18 20:18 Dose: 10 mg Famotidine (Pepcid) 20 mg PO DAILY [facility] Finasteride (Proscar) 5 mg PO DAILY [facility] Last Admin: 04/20/18 09:37 Dose: 5 mg Guaifenesin (Mucinex) 600 mg PO BID [facility] Last Admin: 04/20/18 20:18 Dose: 600 mg Haloperidol Lactate (Haldol) 1 mg IVPUSH Q8H [facility] Hydralazine HCl (Apresoline) 10 mg IVPUSH Q6H PRN PRN Reason: Hypertension Last Admin: 04/20/18 17:46 Dose: 10 mg Levothyroxine Sodium (Synthroid) 88 mcg PO DAILY [facility] Last Admin: 04/20/18 09:37 Dose: 88 mcg Lorazepam (Ativan) 1 mg IVPUSH Q6H PRN PRN Reason: Anxiety Metoprolol Succinate (Toprol Xl) 0 mg PO DAILY [facility] Last Admin: 04/20/18 09:37 Dose: 100 mg Metoprolol Tartrate (Lopressor) 5 mg IVPUSH Q4H PRN PRN Reason: Tachycardia [facility] Last Admin: 04/20/18 16:27 Dose: 20 mg Ondansetron HCl (Zofran Odt) 4 mg PO Q6H PRN PRN Reason: nausea, able to take PO Ondansetron HCl (Zofran) 4 mg IV Q6H PRN PRN Reason: Nausea/Vomiting Lactobacillus Acidophilus [ Probiotic] 1 Cap 0 each PO DAILY [facility] Last Admin: 04/20/18 09:37 Dose: 1 each Polyethylene Glycol (Miralax) 17 gm PO DAILY PRN PRN Reason: Constipation Senna/Docusate Sodium (Senna Plus) 1 tab PO BID PRN PRN Reason: Constipation Sodium Chloride (Saline Flush) 10 ml FLUSH ASDIRECTED PRN PRN Reason: Keep Vein Open Last Admin: 04/19/18 23:46 Dose: 10 ml Terazosin HCl (Hytrin) 2 mg PO BEDTIME [facility] Last Admin: 04/20/18 20:19 Dose: 2 mg Discontinued Medications Albuterol/Ipratropium (Duoneb 3.0-0.5 Mg/3 Ml) 3 ml NEB ONETIME ONE Stop: 04/20/18 00:55 Last Admin: 04/20/18 01:00 Dose: 3 ml Albuterol/Ipratropium (Duoneb 3.0-0.5 Mg/3 Ml) Confirm Administered Dose 3 ml .ROUTE .STK-MED ONE Stop: 04/20/18 00:59 Last Admin: 04/20/18 03:29 Dose: Not Given Al Hydroxide/Mg Hydroxide 30 (ml/ Lidocaine HCl 15 ml) 0 ml PO ONETIME ONE Stop: 04/20/18 00:35 Last Admin: 04/20/18 00:41 Dose: 45 ml Famotidine (Pepcid) 20 mg IVPUSH ONETIME ONE Stop: 04/19/18 23:37 Last Admin: 04/19/18 23:48 Dose: 20 mg Famotidine (Pepcid) 20 mg PO BID [facility] Last Admin: 04/20/18 09:36 Dose: 20 mg Sodium Chloride (Normal Saline) 500 mls @ 999 mls/hr IV .BOLUS ONE Stop: 04/20/18 01:04 Last Admin: 04/20/18 00:41 Dose: 999 mls/hr Lactated Ringer's (Ringers, Lactated) 500 mls @ 999 mls/hr IV .BOLUS ONE Stop: 04/20/18 03:46 Last Admin: 04/20/18 03:26 Dose: 999 mls/hr Lactated Ringer's (Ringers, Lactated) 1,000 mls @ 75 mls/hr IV ASDIRECTED [facility]ODI Sodium Chloride (Normal Saline) 1,000 mls @ 75 mls/hr IV ASDIRECTED [facility] Last Admin: 04/20/18 10:01 Dose: 75 mls/hr Ampicillin Sodium 1 gm/ Sodium (Chloride) 100 mls @ 200 mls/hr IV Q6H [facility] Sodium Chloride (Normal Saline) 1,000 mls @ 100 mls/hr IV ASDIRECTED [facility] Stop: 04/20/18 17:00 Sodium Chloride (Normal Saline) 1,000 mls @ 100 mls/hr IV ASDIRECTED [facility] Stop: 04/21/18 20:59 Last Admin: 04/20/18 21:41 Dose: 100 mls/hr Sodium Chloride (Normal Saline) 1,000 mls @ 50 mls/hr IV ASDIRECTED [facility] Stop: 04/21/18 17:59 Last Admin: 04/20/18 22:46 Dose: Not Given Lorazepam (Ativan) 0.5 mg IVPUSH Q6H PRN PRN Reason: Anxiety Methylprednisolone Sodium Succinate (Solu-Medrol) 125 mg IVPUSH ONETIME ONE Stop: 04/19/18 23:37 Last Admin: 04/19/18 23:48 Dose: 125 mg - Exam Quality Assessment: Supplemental Oxygen, DVT Prophylaxis General: Alert, Cooperative, No Acute Distress. No: Oriented HEENT: Pupils Equal, Pupils Reactive, EOMI, Mucous Membr. Moist/[place] Neck: Supple, Trachea Midline, No JVD Lungs: Normal Respiratory Effort, Decreased Breath Sounds, Rhonchi (mild ), Wheezing (diffuse ) Cardiovascular: Regular Rate, Regular Rhythm GI/Abdominal Exam: Normal Bowel Sounds, Soft, Non-Tender, No Distention (Male) Exam: Deferred Back Exam: Normal Inspection, Full Range of Motion Extremities: Normal Inspection, Normal Range of Motion, Non-Tender, No Pedal Edema Peripheral Pulses: 3+: Radial (L), Radial (R), Posterior Tibial (L), Posterior Tibial (R), Dorsalis Pedis (L), Dorsalis Pedis (R) Skin: Warm, Dry, Intact Neurological: No New Focal Deficit Psy/Mental Status: Alert, Normal Affect - Problem List & Annotations (1) HLD (hyperlipidemia) SNOMED Code(s): 07464513 Code(s): E78.5 - HYPERLIPIDEMIA, UNSPECIFIED Status: Chronic Priority: Low Current Visit: No Qualifiers: Hyperlipidemia type: unspecified Qualified Code(s): E78.5 - Hyperlipidemia , unspecified (2) HTN (hypertension) SNOMED Code(s): 57042494 Code(s): I10 - ESSENTIAL (PRIMARY) HYPERTENSION Status: Chronic Priority : Low Current Visit: No Qualifiers: Hypertension type: unspecified Qualified Code(s): I10 - Essential (primary ) hypertension (3) Chronic back pain SNOMED Code(s): 380040119 Code(s): M54.9 - DORSALGIA, UNSPECIFIED; G89.29 - OTHER CHRONIC PAIN Status : Chronic Priority: Low Current Visit: No Qualifiers: Back pain location: back pain in unspecified location Back pain laterality : unspecified Qualified Code(s): M54.9 - Dorsalgia, unspecified; G89.29 - Other chronic pain (4) Alzheimer disease SNOMED Code(s): 80003024 Code(s): G30.9 - ALZHEIMER'S DISEASE, UNSPECIFIED; F02.80 - DEMENTIA IN OTH DISEASES CLASSD ELSWHR W/O BEHAVRL DISTURB Status: Chronic Priority: Medium Current Visit: Yes Qualifiers: Alzheimer's disease onset: unspecified onset Dementia behavioral disturbance: without behavioral disturbance Qualified Code(s): G30.9 - Alzheimer's disease, unspecified; F02.80 - Dementia in other diseases classified elsewhere without behavioral disturbance (5) Dementia SNOMED Code(s): 89185206 Code(s): F03.90 - UNSPECIFIED DEMENTIA WITHOUT BEHAVIORAL DISTURBANCE Status: Chronic Priority: Medium Current Visit: Yes Qualifiers: Dementia type: Alzheimer's disease Alzheimer's disease onset: unspecified onset Dementia behavioral disturbance: without behavioral disturbance Qualified Code(s): G30.9 - Alzheimer's disease, unspecified; F02.80 - Dementia in other diseases classified elsewhere without behavioral disturbance (6) Hypothyroidism SNOMED Code(s): 46646612 Code(s): E03.9 - HYPOTHYROIDISM, UNSPECIFIED Status: Chronic Priority: Low Current Visit: No Qualifiers: Hypothyroidism type: unspecified Qualified Code(s): E03.9 - Hypothyroidism , unspecified (7) Acute renal insufficiency SNOMED Code(s): 745666163 Code(s): N28.9 - DISORDER OF KIDNEY AND URETER, UNSPECIFIED Status: Acute Priority: High Current Visit: Yes (8) Dehydration SNOMED Code(s): 05088861 Code(s): E86.0 - DEHYDRATION Status: Acute Priority: High Current Visit : Yes (9) Hypoxia SNOMED Code(s): 331074368 Code(s): R09.02 - HYPOXEMIA Status: Acute Priority: High Current Visit : Yes (10) Weakness generalized SNOMED Code(s): 00692720 Code(s): R53.1 - WEAKNESS Status: Acute Priority: High Current Visit: Yes (11) Benign prostatic hyperplasia SNOMED Code(s): 825056968 Code(s): N40.0 - BENIGN PROSTATIC HYPERPLASIA WITHOUT LOWER URINRY TRACT SYMP Status: Chronic Priority: Low Current Visit: No Qualifiers: Lower urinary tract symptom presence: symptoms present (12) GERD with esophagitis SNOMED Code(s): 263646931 Code(s): K21.0 - GASTRO-ESOPHAGEAL REFLUX DISEASE WITH ESOPHAGITIS Status: Chronic Priority: Medium Current Visit: Yes (13) Comfort measures only status SNOMED Code(s): 09539080801336 Code(s): Z51.5 - ENCOUNTER FOR PALLIATIVE CARE Status: Acute Priority: High Current Visit: Yes - Problem List Review Problem List Initiated/Reviewed/Updated: Yes - My Orders Last 24 Hours: My Active Orders 04/20/18 08:29 Cardiac Monitoring [RC] CONTINUOUS Height and Weight [RC] 04 Intake and Output [RC] 04,16 Pulse Oximetry [RC] PRN Up With Assistance [RC] ASDIRECTED VTE/DVT Education [RC] PER UNIT ROUTINE Vital Signs [RC] Q4HR Consult to Spiritual Care [CONS] Routine OT Evaluation and Treatment [CONS] Routine PT Evaluation and Treatment [CONS] Routine Acetaminophen [Tylenol] 650 mg PO Q4H PRN Albuterol/Ipratropium [DuoNeb 3.0-0.5 MG/3 ML] 3 ml NEB Q4H PRN Bisacodyl [Dulcolax] 5 mg PO DAILY PRN Docusate Sodium [Colace] 100 mg PO BID PRN Docusate Sodium/Sennosides [Senna Plus] 1 tab PO BID PRN Ondansetron [Zofran ODT] 4 mg PO Q6H PRN Ondansetron [Zofran] 4 mg IV Q6H PRN Polyethylene Glycol 3350 [MiraLAX] 17 gm PO DAILY PRN 04/20/18 08:31 RT Aerosol Therapy [RC] ASDIRECTED 04/20/18 08:33 Metoprolol Tartrate [Lopressor] 5 mg IVPUSH Q4H PRN hydrALAZINE [Apresoline] 10 mg IVPUSH Q6H PRN 04/20/18 09:00 Docusate Sodium [Colace] 100 mg PO BID Finasteride [Proscar] 5 mg PO DAILY Levothyroxine [Synthroid] 88 mcg PO DAILY Metoprolol Succinate [Toprol XL] 0 mg PO DAILY Patient's Own Medication [Ptom] 0 each PO DAILY amLODIPine [Norvasc] 5 mg PO DAILY 04/20/18 11:25 STREP PNEUMONIAE ANTIGEN [MREF] Routine 04/20/18 11:40 RESPIRATORY PANEL BY PCR [MREF] Routine 04/20/18 12:05 Consult to Respiratory Therapy [Respiratory Care Assess and Treatment] [CONS] Routine 04/20/18 12:39 Patient Status [ADT] Routine 04/20/18 16:00 Omeprazole 20 mg PO BIDAC 04/20/18 21:00 Terazosin [Hytrin] 2 mg PO BEDTIME 04/20/18 Dinner Soft Diet [DIET] 04/21/18 06:05 BASIC METABOLIC PANEL,BMP [CHEM] AM CBC WITH AUTO DIFF [HEME] AM CRP [C-REACTIVE PROTEIN] [CHEM] AM MAGNESIUM [CHEM] AM TSH [CHEM] Routine 04/21/18 08:00 CXR [Chest 2V] [CR] Routine 04/21/18 09:00 Famotidine [Pepcid] 20 mg PO DAILY 04/22/18 05:11 BASIC METABOLIC PANEL,BMP [CHEM] AM CBC WITH AUTO DIFF [HEME] AM CRP [C-REACTIVE PROTEIN] [CHEM] AM MAGNESIUM [CHEM] AM 04/23/18 05:11 BASIC METABOLIC PANEL,BMP [CHEM] AM CBC WITH AUTO DIFF [HEME] AM CRP [C-REACTIVE PROTEIN] [CHEM] AM MAGNESIUM [CHEM] AM 04/24/18 05:11 BASIC METABOLIC PANEL,BMP [CHEM] AM CBC WITH AUTO DIFF [HEME] AM CRP [C-REACTIVE PROTEIN] [CHEM] AM MAGNESIUM [CHEM] AM - Plan Plan:: I/P: Acute: Comfort care -Discussed with patients , daughter, and son in [place] via phone -All agree to comfort care; withhold aspiration treatment, discontinue PT/OT , Lab draws, Telemetry, IV -Will be discharged tomorrow to [facility] Cough -Reports worsening cough over past few days -Evaluated at clinic 5 or 6 days ago -Malaise, fatigue, weakness, one day of diarrhea which has resolved, chest pain from coughing, but no fever, nausea, or vomiting -Reports history of post-nasal drip, allergies -Very mild Leukocytosis - 10.12-->10.17 -CRP WNL - 0.2 -CXR on 04/19/18 shows nothing acute per Dr. Murcia -Could be GERD related although on daily PPI and H2 lucretia -Strep pneumo, mycoplasma, respiratory viral panel all pending -Repeat CXR on 04/21/18 - Atelectasis, nothing acute -Oral cough medications Generalized weakness -Very mild leukocytosis -CRP WNL -Infectious workup pending - negative thus far -Likely due to poor intake, deconditioning -PT/OT - will discontinue -Lives at home - SNF placement - [facility] -CXR: WNL, 12-lead: NSR, Troponin: negative -UA normal -TSH WNL -[employer] evaluation for swallow - No concerns on admission - AMS now Questionable aspiration -Nursing reports patient was drinking liquids and began to cough -Less responsive now - improving; fluctuates -Portable CXR shows nothing acute, atelectasis -Family would like to just make comfort care and not start empiric aspiration treatment Acute kidney injury -Baseline appears to be WNL -BUN 55-->46 -Creatinine 2.3-->1.7 -eGFR 27-->38 -IV fluids as ordered -Avoid nephrotoxic agents Dehydration, resolved -Anion gap 15.7-->14.0 -Concentrated urine -Kidney function as above -IV fluids Chronic: HLD HTN Recurrent bronchitis Recurrent pneumonia GERD BPH Back pain Alzheimer's disease Dementia Hypothyroidism Prior C-Difficile infection Plan: Admit to medical floor observation on telemetry - upgrade to inpatient Home meds as ordered Routine AM labs - discontinue GI prophylaxis: Home PPI and H2 lucretia DVT Prophylaxis: GOMEZ vazquez PT/OT - discontinue SW for discharge planning: will need SNF placement - [facility] accepting Code status: DNR/DNI--> Decreased to DNR/DNI/Comfort care after discussion with family; PCP: Dr. Yates Discharge 04/22/[address] [facility] on comfort care.
[2018-04-21] MEDS ORDERED: Benzonatate 100 MG Cap PO PRN (08:02)
[2018-04-21] MEDS ORDERED: guaiFENesin 100 MG/5 ML Soln 10 ML UD Cup PO PRN (08:15)
[2018-04-21] MEDS: Metoprolol Succinate 100 MG Tab.ER PO SCH (09:24)
[2018-04-21] MEDS: Levothyroxine 88 MCG Tab PO SCH (09:27)
[2018-04-21] MEDS: amLODIPine 5 MG Tab PO SCH (09:27)
[2018-04-21] MEDS: Famotidine 20 MG Tab PO SCH (09:29)
[2018-04-21] MEDS: Finasteride 5 MG Tab PO SCH (09:30)
[2018-04-21] MEDS: Omeprazole 20 MG Cap.CR PO SCH ×2 (09:31→16:54)
[2018-04-21] MEDS: guaiFENesin/Dextromethorphan 100-10 MG/5 ML Soln 5 ML Cup PO SCH ×4 (09:32→20:00)
[2018-04-21] MEDS: Docusate Sodium 100 MG Cap PO SCH ×2 (09:33→20:00)
[2018-04-21] MEDS: LACTOBACILLUS ACIDOPHILUS PO SCH (09:39)
--- NOTE | 2018-04-21 10:18 | CR ---
Chest: Two views of the chest were obtained. Comparison: Prior chest x-ray of 04/19/18. Slight atelectasis is felt to be present within both lung bases. Lungs otherwise are clear. Hiatal hernia is noted. Heart size appears within normal limits. Tortuous thoracic aorta is seen. Scattered degenerative change is incidentally noted within the spine. Impression: 1. Mild bibasilar atelectasis and other incidental findings. Diagnostic code #2
--- NOTE | 2018-04-21 11:02 | CR ---
Chest: Portable view of the chest was obtained. Comparison: Prior chest x-ray performed on the same day (8:37 AM) Findings: Slightly improved atelectasis noted within both lung bases. Lungs otherwise are clear. Heart size and mediastinum are stable. Bony structures are unchanged. Impression: 1. Slightly improved bibasilar atelectasis from prior study. Nothing acute is seen. Diagnostic code #2
[2018-04-21] MEDS ORDERED: Metoprolol Succinate 50 MG Tab.ER PO SCH (11:08)
[2018-04-21] MEDS: Donepezil 10 MG Tab PO SCH (20:00)
[2018-04-21] MEDS ORDERED: Loratadine 10 MG Tab PO SCH (21:00)
[2018-04-22] MEDS: guaiFENesin/Dextromethorphan 100-10 MG/5 ML Soln 5 ML Cup PO SCH ×3 (00:45→08:37)
[2018-04-22] MEDS: Omeprazole 20 MG Cap.CR PO SCH (05:06)
--- NOTE | 2018-04-22 06:12 | PCM.DCSUM1 ---
Discharge Summary - Hospital Course HPI Initial Comments: Alvarez Tavarez is an 87 yo male who was brought to our ED on 04/19/18 during late night hours by his due to his severe cough. He does have an altered mental status and is noted to be sleepy by the ED provider. History is obtained primarily from the patient's who is his primary mop machine operator. She reports he had pneumonia 5 or 6 weeks prior in February has been coughing ever since. He did go to the clinic 5 or 6 days ago and was evaluated at that time. He did not have pneumonia then. His been taking some cough medication with codeine but that has not helped. Other history of acid reflux and is on omeprazole in the morning and Pepcid in the evening. His does note that he often spits out his medications. He had been eating and drinking relatively where all up until the day he was seen. No fever. One episode of diarrhea on but none since. No vomiting. He does have a history of C. difficile. In the ER twelve-lead EKG is obtained which shows a normal sinus rhythm with no ectopy per the ED provider. Pulse this 84. Temperature 97.6. Respirations 20. Blood pressure 141/117. Pulse ox 93% He does have a mild leukocytosis at 10.12. Hemoglobin is low at 12.9. Hematocrit 39.3. He is macrocytic. Platelet 266,000. Neutrophils are elevated at 67%. There is no bandemia. Sodium is 138. Potassium 4.7. Chloride was 6. A 21. Anion gap was slightly high at 15.7. BUN is hi at 55. Creatinine 2.3. EGFR is 27. Glucose is 127. Calcium 9.3. Total bilirubin 0.4. Liver enzymes looked good with AST at 36, ALT 36, alkaline phosphatase at 102. troponin is negative at less than 0.017. BNP is good at 294. CRP is 0.2. Protein is good at 6.9. Albumin 3. He is given a DuoNeb, Pepcid, Solu-Medrol, and a GI cocktail. He was suctioned withminimal improvement. In the sats were noted to be 87-88% but then rebounded into the 90s. The ED provider does note the children have been encouraging skilled nursing placement He subsequently admitted to the medical floor observation status on telemetry. He carries a history of: HLD, HTN, recurrenbronchitis, reeumonia, MISHEL PAIN< Alzheimer's disease, hypothyroidism, history of C. difficile infection. He was never a smoker. He is a DNR/DNI. His PCP is Dr. Yates. - Discharge Data Discharge Date: 04/22/18 (Admit date: 04/20/18) Discharge Disposition: DC/Tfer to SNF 03 Condition: Fair - Discharge Diagnosis/Problem(s) (1) HLD (hyperlipidemia) SNOMED Code(s): 97551668 ICD Code: E78.5 - HYPERLIPIDEMIA, UNSPECIFIED Status: Chronic Priority: Low Current Visit: No Qualifiers: Hyperlipidemia type: unspecified Qualified Code(s): E78.5 - Hyperlipidemia , unspecified (2) HTN (hypertension) SNOMED Code(s): 72062683 ICD Code: I10 - ESSENTIAL (PRIMARY) HYPERTENSION Status: Chronic Priority : Low Current Visit: No Qualifiers: Hypertension type: unspecified Qualified Code(s): I10 - Essential (primary ) hypertension (3) Chronic back pain SNOMED Code(s): 216680030 ICD Code: M54.9 - DORSALGIA, UNSPECIFIED; G89.29 - OTHER CHRONIC PAIN Status: Chronic Priority: Low Current Visit: No Qualifiers: Back pain location: back pain in unspecified location Back pain laterality : unspecified Qualified Code(s): M54.9 - Dorsalgia, unspecified; G89.29 - Other chronic pain (4) Alzheimer disease SNOMED Code(s): 54227756 ICD Code: G30.9 - ALZHEIMER'S DISEASE, UNSPECIFIED; F02.80 - DEMENTIA IN OTH DISEASES CLASSD ELSWHR W/O BEHAVRL DISTURB Status: Chronic Priority: Medium Current Visit: Yes Qualifiers: Alzheimer's disease onset: unspecified onset Dementia behavioral disturbance: without behavioral disturbance Qualified Code(s): G30.9 - Alzheimer's disease, unspecified; F02.80 - Dementia in other diseases classified elsewhere without behavioral disturbance (5) Dementia SNOMED Code(s): 98502182 ICD Code: F03.90 - UNSPECIFIED DEMENTIA WITHOUT BEHAVIORAL DISTURBANCE Status: Chronic Priority: Medium Current Visit: Yes Qualifiers: Dementia type: Alzheimer's disease Alzheimer's disease onset: unspecified onset Dementia behavioral disturbance: without behavioral disturbance Qualified Code(s): G30.9 - Alzheimer's disease, unspecified; F02.80 - Dementia in other diseases classified elsewhere without behavioral disturbance (6) Hypothyroidism SNOMED Code(s): 58980821 ICD Code: E03.9 - HYPOTHYROIDISM, UNSPECIFIED Status: Chronic Priority: Low Current Visit: No Qualifiers: Hypothyroidism type: unspecified Qualified Code(s): E03.9 - Hypothyroidism , unspecified (7) Acute renal insufficiency SNOMED Code(s): 787826109 ICD Code: N28.9 - DISORDER OF KIDNEY AND URETER, UNSPECIFIED Status: Acute Priority: High Current Visit: Yes (8) Dehydration SNOMED Code(s): 94108088 ICD Code: E86.0 - DEHYDRATION Status: Acute Priority: High Current Visit: Yes (9) Hypoxia SNOMED Code(s): 513907663 ICD Code: R09.02 - HYPOXEMIA Status: Acute Priority: High Current Visit : Yes (10) Weakness generalized SNOMED Code(s): 02288649 ICD Code: R53.1 - WEAKNESS Status: Acute Priority: High Current Visit: Yes (11) Benign prostatic hyperplasia SNOMED Code(s): 319192456 ICD Code: N40.0 - BENIGN PROSTATIC HYPERPLASIA WITHOUT LOWER URINRY TRACT SYMP Status: Chronic Priority: Low Current Visit: No Qualifiers: Lower urinary tract symptom presence: symptoms present (12) GERD with esophagitis SNOMED Code(s): 458869164 ICD Code: K21.0 - GASTRO-ESOPHAGEAL REFLUX DISEASE WITH ESOPHAGITIS Status : Chronic Priority: Medium Current Visit: Yes (13) Comfort measures only status SNOMED Code(s): 64736288873588 ICD Code: Z51.5 - ENCOUNTER FOR PALLIATIVE CARE Status: Acute Priority: High Current Visit: Yes - Patient Summary/Data Consults: Consultations 04/20/18 03:20 Consult to Breeding Technician [CONS] Routine 04/20/18 08:29 Consult to Spiritual Care [CONS] Routine 04/20/18 09:51 Consult to Speech Language Pathology [DISTRICT SUPERVISOR Evaluation and Treatment] [CONS] Routine 04/20/18 12:05 Consult to Respiratory Therapy [Respiratory Care Assess and Treatment] [CONS] Routine 04/21/18 08:13 Consult to Case Management [CONS] Routine Labs Pending at D/C: None Recommended Follow-up Testing/Procedures: Recommend follow-up with PCP as needed Hospital Course: I/P: Acute: Comfort care -Discussed with patients , daughter, and son in [place] via phone -All agree to comfort care; withhold aspiration treatment, discontinue: PT/OT , Lab draws, Telemetry, IV -Will be discharged today to [facility] Cough, improving -Reports worsening cough over past few days -Evaluated at clinic 5 or 6 days ago -Malaise, fatigue, weakness, one day of diarrhea which has resolved, chest pain from coughing, but no fever, nausea, or vomiting -Reports history of post-nasal drip, allergies -Very mild Leukocytosis - 10.12-->10.17 -CRP WNL - 0.2 -CXR on 04/19/18 shows nothing acute per Dr. Murcia -Could be GERD related although on daily PPI and H2 lucretia -Strep pneumo, mycoplasma, respiratory viral panel all pending -Repeat CXR on 04/21/18 - Atelectasis, nothing acute -Oral cough medications -Started claritin daily Generalized weakness -Very mild leukocytosis -CRP WNL -Infectious workup: Viral panel, strep pneumo, mycoplasma - all negative -Likely due to poor intake, deconditioning -PT/OT - will discontinue -Lives at home - SNF placement - [facility] -CXR: WNL, 12-lead: NSR, Troponin: negative -UA normal -TSH WNL -DISTRICT SUPERVISOR evaluation for swallow - No concerns on admission - AMS now Questionable aspiration -Nursing reports patient was drinking liquids and began to cough -Less responsive now - improving; fluctuates -Portable CXR shows nothing acute, atelectasis -Family would like to just make comfort care and not start empiric aspiration treatment -Fever last night (04/21/18) which resolved after Tylenol Acute kidney injury, improved -Baseline appears to be WNL -BUN 55-->46 -Creatinine 2.3-->1.7 -eGFR 27-->38 -IV fluids as ordered -Avoid nephrotoxic agents Dehydration, resolved -Anion gap 15.7-->14.0 -Concentrated urine -Kidney function as above -IV fluids Chronic: HLD HTN Recurrent bronchitis Recurrent pneumonia GERD BPH Back pain Alzheimer's disease Dementia Hypothyroidism Prior C-Difficile infection Plan: Admit to medical floor observation on telemetry - upgrade to inpatient Home meds as ordered Routine AM labs - discontinue GI prophylaxis: Home PPI and H2 lucretia DVT Prophylaxis: GOMEZ vazquez PT/OT - discontinue SW for discharge planning: will need SNF placement - [facility]'s accepting Code status: DNR/DNI--> Decreased to DNR/DNI/Comfort care after discussion with family; PCP: Dr. Yates Discharge 04/22/18 to [facility] on comfort care. Overall Alvarez did ok. He came in with generalized weakness and a cough which has responded to treatment well. Respiratory viral panel, strep pneumo, and mycoplasma were all negative. He only had a very mild leukocytosis while here and his CRP was WNL. He does still have some upper airway stridor which appears to be due to secretions. DISTRICT SUPERVISOR did evaluate Alvarez shortly after his admission and she was recommending thin liquids and regular diet. Yesterday he did have an episode in which it is believed he may have aspirated, although his chest x-ray did not show any acute findings. DISTRICT SUPERVISOR attempted to re-evaluate after the episode and Alvarez refused. He has been refusing many of his medications and when mixed with pudding he would feel the pieces and spit them out. He did spike a fever overnight which resolved after one dose of Tylenol. I had a lengthy discussion yesterday with Adria's , daughter, and son whom I contacted via phone in [place]. All three are listed as his medical POAs and the decision was made by all to withhold empiric treatment for aspiration pneumonia, stop telemetry, stop lab draws, discontinue the IV, and discharge to [facility] on comfort care. He will be sent to [facility] on a new prescription for Claritin, Tessalon Perles, and Robitussin DM, along with his home medications. He will likely require oxygen while in the skilled nursing and this should be titrated to keep saturations above 90%. - Patient Instructions Diet: Regular Diet as Tolerated Activity: As Tolerated Driving: Do Not Drive Notify Provider of: Increased Pain, Nausea and/or Vomiting - Discharge Plan Prescriptions/Med Rec: Benzonatate [Tessalon Perle] 200 mg PO TID PRN #20 capsule PRN Reason: Cough Dextromethorphan/guaiFENesin [Robitussin DM] 5 ml PO Q6H 5 Days #1 cup Loratadine [Claritin] 10 mg PO BEDTIME #20 tablet Home Medications: Home Meds Finasteride [Proscar] 5 mg PO DAILY 08/15/14 [History] Levothyroxine [Synthroid] 0.88 mcg PO DAILY 08/15/14 [History] Omeprazole 20 mg PO DAILY 08/15/14 [History] Terazosin [Hytrin] 2 mg PO BEDTIME 11/21/15 [History] amLODIPine [Norvasc] 5 mg PO DAILY 11/21/15 [History] Lactobacillus Acidophilus [Probiotic] 1 cap PO DAILY 06/06/16 [History] Docusate Sodium [Stool Softener] 100 mg PO BID 11/22/16 [History] Metoprolol Succinate [Toprol XL] 100 mg PO DAILY 11/22/16 [History] Famotidine [Pepcid AC] 20 mg PO DAILY #30 tablet 01/04/18 [Rx] Benzonatate [Tessalon Perle] 200 mg PO TID PRN #20 capsule 04/22/18 [Rx] Dextromethorphan/guaiFENesin [Robitussin DM] 5 ml PO Q6H 5 Days #1 cup 04/22/18 [Rx] Loratadine [Claritin] 10 mg PO BEDTIME #20 tablet 04/22/18 [Rx] Patient Handouts: Aspiration Precautions, Adult Referrals: Flakito Yates MD [Primary Care Provider] - (Follow-up as needed.) - Discharge Summary/Plan Comment DC Time >30 min.: Yes (45 mins) - General Info Date of Service: 04/22/18 Admission Dx/Problem (Free Text: Admission Diagnosis/Problem Admission Diagnosis/Problem Cough in adult Subjective Update: In to see Alvarez. He is lying in bed and his is at bedside. He is quite confused this AM. He has no complaints. and nursing report it appears his cough has improved. He is still requiring oxygen. He did spike a fever last night which resolved after one dose of tylenol. No other nursing concerns. Functional Status: Reports: Pain Controlled, Tolerating Diet, Urinating. Denies : New Symptoms - Review of Systems General: Reports: Weakness, Fatigue, Malaise. Denies: Fever (none now ), Chills HEENT: Reports: Post Nasal Drip, Sore Throat. Denies: Ear Pain, Eye Pain Pulmonary: Reports: Pleuritic Chest Pain, Cough, Wheezing. Denies: Shortness of Breath, Sputum Cardiovascular: Reports: No Symptoms. Denies: Chest Pain, Palpitations, Dyspnea on Exertion, Edema Gastrointestinal: Reports: No Symptoms. Denies: Abdominal Pain, Constipation, Diarrhea, Nausea, Vomiting Genitourinary: Reports: No Symptoms Musculoskeletal: Reports: No Symptoms Skin: Reports: No Symptoms Neurological: Reports: Confusion, Pre-Existing Deficit, Difficulty Walking, Weakness, Gait Disturbance. Denies: Trouble Speaking, Change in Speech Psychiatric: Reports: No Symptoms - Patient Data Vitals - Most Recent: Last Vital Signs Temp 98.1 F 04/22/18 03:54 Pulse 78 04/22/18 03:54 Resp 18 04/22/18 03:54 BP 98/43 L 04/22/18 03:54 Pulse Ox 96 04/22/18 03:54 Weight - Most Recent: 180 lb 1.6 oz I&O - Last 24 hours: Intake & Output 04/21/18 04/21/18 04/22/18 14:59 22:59 06:59 Intake Total 240 100 Output Total 2 Balance 240 -2 100 Lab Results - Last 24 hrs: Laboratory Results - last 24 hr 04/21/18 04/21/18 Range/Units 06:05 06:05 WBC 10.17 H (4.23-9.07) K/mm3 RBC 3.78 L (4.63-6.08) M/mm3 Hgb 11.8 L (13.7-17.5) gm/L Hct 36.5 L (40.1-51.0) % MCV 96.6 H (79.0-92.2) fl MCH 31.2 (25.7-32.2) pg MCHC 32.3 (32.2-35.5) g/dl RDW Std Deviation 48.5 H (35.1-43.9) fL Plt Count 153 L (163-337) K/mm3 MPV 11.2 (9.4-12.3) fl Neut % (Auto) 72.1 H (34.0-67.9) % Lymph % (Auto) 14.7 L (21.8-53.1) % [place] % (Auto) 12.2 (5.3-12.2) % Eos % (Auto) 0.5 L (0.8-7.0) Baso % (Auto) 0.1 (0.1-1.2) % Neut # (Auto) 7.34 H (1.78-5.38) K/mm3 Lymph # (Auto) 1.49 (1.32-3.57) K/mm3 [place] # (Auto) 1.24 H (0.30-0.82) K/mm3 Eos # (Auto) 0.05 (0.04-0.54) K/mm3 Baso # (Auto) 0.01 (0.01-0.08) K/mm3 Sodium 139 (136-145) mEq/L Potassium 4.0 (3.5-5.1) mEq/L Chloride 109 H (98-107) mEq/L Carbon Dioxide 20 L (21-32) mEq/L Anion Gap 14.0 (5-15) BUN 46 H (7-18) mg/dL Creatinine 1.7 H (0.7-1.3) mg/dL Est Cr Clr Drug Dosing 28.50 mL/min Estimated GFR (MDRD) 38 (>60) mL/min BUN/Creatinine Ratio 27.1 H (14-18) Glucose 97 (83-115) mg/dL Calcium 8.5 (8.5-10.1) mg/dL Magnesium 2.2 (1.8-2.4) mg/dl C-Reactive Protein < 0.2 (<1.0) mg/dL TSH 3rd Generation 2.280 (0.358-3.74) uIU/mL [facility] Results - Last 24 hrs: Microbiology 04/20/18 11:25 Streptococcus pneumoniae Antigen (M - Final Urine 04/20/18 11:40 Respiratory Virus Panel (PCR) - Final Nasopharyngeal Swab Med Orders - Current: Current Medications Acetaminophen (Tylenol) 650 mg PO Q4H PRN PRN Reason: Pain (Mild 1-3)/fever Last Admin: 04/21/18 20:47 Dose: 650 mg Albuterol/Ipratropium (Duoneb 3.0-0.5 Mg/3 Ml) 3 ml NEB Q4H PRN PRN Reason: Shortness Of Breath/wheezing Last Admin: 04/20/18 14:21 Dose: 3 ml Amlodipine Besylate (Norvasc) 5 mg PO DAILY [facility] Last Admin: 04/21/18 09:27 Dose: 5 mg Benzonatate (Tessalon Perles) 200 mg PO TID PRN PRN Reason: Cough Last Admin: 04/21/18 09:32 Dose: 200 mg Bisacodyl (Dulcolax) 5 mg PO DAILY PRN PRN Reason: Constipation Docusate Sodium (Colace) 100 mg PO BID PRN PRN Reason: Constipation Docusate Sodium (Colace) 100 mg PO BID [facility] Last Admin: 04/21/18 20:00 Dose: Not Given Donepezil HCl (Aricept) 10 mg PO BEDTIME [facility] Last Admin: 04/21/18 20:00 Dose: Not Given Famotidine (Pepcid) 20 mg PO DAILY [facility] Last Admin: 04/21/18 09:29 Dose: 20 mg Finasteride (Proscar) 5 mg PO DAILY [facility] Last Admin: 04/21/18 09:30 Dose: 5 mg Guaifenesin/Phenylephrine HCl (Robitussin Dm) 5 ml PO Q4H [facility] Last Admin: 04/22/18 05:06 Dose: Not Given Haloperidol Lactate (Haldol) 1 mg IVPUSH Q8H [facility] Hydralazine HCl (Apresoline) 10 mg IVPUSH Q6H PRN PRN Reason: Hypertension Last Admin: 04/20/18 17:46 Dose: 10 mg Levothyroxine Sodium (Synthroid) 88 mcg PO DAILY [facility] Last Admin: 04/21/18 09:27 Dose: 88 mcg Loratadine (Claritin) 10 mg PO BEDTIME [facility] Last Admin: 04/21/18 20:00 Dose: Not Given Lorazepam (Ativan) 1 mg IVPUSH Q6H PRN PRN Reason: Anxiety Metoprolol Succinate (Toprol Xl) 100 mg PO DAILY [facility] Metoprolol Tartrate (Lopressor) 5 mg IVPUSH Q4H PRN PRN Reason: Tachycardia Omeprazole (Omeprazole) 20 mg PO BIDAC [facility] Last Admin: 04/22/18 05:06 Dose: Not Given Ondansetron HCl (Zofran Odt) 4 mg PO Q6H PRN PRN Reason: nausea, able to take PO Ondansetron HCl (Zofran) 4 mg IV Q6H PRN PRN Reason: Nausea/Vomiting Lactobacillus Acidophilus [ Probiotic] 1 Cap 0 each PO DAILY [facility] Last Admin: 04/21/18 09:39 Dose: 1 each Polyethylene Glycol (Miralax) 17 gm PO DAILY PRN PRN Reason: Constipation Senna/Docusate Sodium (Senna Plus) 1 tab PO BID PRN PRN Reason: Constipation Terazosin HCl (Hytrin) 2 mg PO BEDTIME [facility] Last Admin: 04/21/18 20:00 Dose: Not Given Discontinued Medications Albuterol/Ipratropium (Duoneb 3.0-0.5 Mg/3 Ml) 3 ml NEB ONETIME ONE Stop: 04/20/18 00:55 Last Admin: 04/20/18 01:00 Dose: 3 ml Albuterol/Ipratropium (Duoneb 3.0-0.5 Mg/3 Ml) Confirm Administered Dose 3 ml .ROUTE .STK-MED ONE Stop: 04/20/18 00:59 Last Admin: 04/20/18 03:29 Dose: Not Given Al Hydroxide/Mg Hydroxide 30 (ml/ Lidocaine HCl 15 ml) 0 ml PO ONETIME ONE Stop: 04/20/18 00:35 Last Admin: 04/20/18 00:41 Dose: 45 ml Famotidine (Pepcid) 20 mg IVPUSH ONETIME ONE Stop: 04/19/18 23:37 Last Admin: 04/19/18 23:48 Dose: 20 mg Famotidine (Pepcid) 20 mg PO BID [facility] Last Admin: 04/20/18 09:36 Dose: 20 mg Guaifenesin (Mucinex) 600 mg PO BID [facility] Last Admin: 04/20/18 20:18 Dose: 600 mg Sodium Chloride (Normal Saline) 500 mls @ 999 mls/hr IV .BOLUS ONE Stop: 04/20/18 01:04 Last Admin: 04/20/18 00:41 Dose: 999 mls/hr Lactated Ringer's (Ringers, Lactated) 500 mls @ 999 mls/hr IV .BOLUS ONE Stop: 04/20/18 03:46 Last Admin: 04/20/18 03:26 Dose: 999 mls/hr Lactated Ringer's (Ringers, Lactated) 1,000 mls @ 75 mls/hr IV ASDIRECTED [facility] Sodium Chloride (Normal Saline) 1,000 mls @ 75 mls/hr IV ASDIRECTED [facility] Last Admin: 04/20/18 10:01 Dose: 75 mls/hr Ampicillin Sodium 1 gm/ Sodium (Chloride) 100 mls @ 200 mls/hr IV Q6H [facility] Sodium Chloride (Normal Saline) 1,000 mls @ 100 mls/hr IV ASDIRECTED [facility] Stop: 04/20/18 17:00 Sodium Chloride (Normal Saline) 1,000 mls @ 100 mls/hr IV ASDIRECTED [facility] Stop: 04/21/18 20:59 Last Admin: 04/20/18 21:41 Dose: 100 mls/hr Sodium Chloride (Normal Saline) 1,000 mls @ 50 mls/hr IV ASDIRECTED [facility] Stop: 04/21/18 17:59 Last Admin: 04/20/18 22:46 Dose: Not Given Lorazepam (Ativan) 0.5 mg IVPUSH Q6H PRN PRN Reason: Anxiety Methylprednisolone Sodium Succinate (Solu-Medrol) 125 mg IVPUSH ONETIME ONE Stop: 04/19/18 23:37 Last Admin: 04/19/18 23:48 Dose: 125 mg Metoprolol Succinate (Toprol Xl) 0 mg PO DAILY [facility] Last Admin: 04/21/18 09:24 Dose: 100 mg Sodium Chloride (Saline Flush) 10 ml FLUSH ASDIRECTED PRN PRN Reason: Keep Vein Open Last Admin: 04/19/18 23:46 Dose: 10 ml - Exam Quality Assessment: Reports: Supplemental Oxygen, DVT Prophylaxis General: Reports: Alert, Cooperative, No Acute Distress HEENT: Reports: Pupils Equal, Pupils Reactive, EOMI, Mucous Membr. Moist/[place] Neck: Reports: Supple, Trachea Midline, No JVD Lungs: Reports: Normal Respiratory Effort, Decreased Breath Sounds, Crackles ( very fine in bases ), Wheezing (mild diffuse ) Cardiovascular: Reports: Regular Rate, Regular Rhythm GI/Abdominal Exam: Normal Bowel Sounds, Soft, Non-Tender, No Distention (Male) Exam: Deferred Rectal (Males) Exam: Deferred Back Exam: Reports: Normal Inspection, Decreased Range of Motion Extremities: Normal Inspection, Normal Range of Motion, Non-Tender, No Pedal Edema, Normal Capillary Refill Skin: Reports: Warm, Dry, Intact Neurological: Reports: No New Focal Deficit Psy/Mental Status: Reports: Alert
[2018-04-22] MEDS: amLODIPine 5 MG Tab PO SCH (08:39)
[2018-04-22] MEDS: Levothyroxine 88 MCG Tab PO SCH (08:39)
[2018-04-22] MEDS: Famotidine 20 MG Tab PO SCH (08:39)
[2018-04-22] MEDS: Finasteride 5 MG Tab PO SCH (08:39)
[2018-04-22 08:40] VITALS: BP 144/78
[2018-04-22] MEDS: Docusate Sodium 100 MG Cap PO SCH (08:40)
[2018-04-22] MEDS: LACTOBACILLUS ACIDOPHILUS PO SCH (08:40)
== END 2018-04-22 11:20 | DRG 392 ==
LOC: JD.ED 23:02 → JD.MS 04-20 02:16 → OBSVTOIN 04-20 12:39 → JD.MS 04-20 14:36
PROVIDERS: ADMIT Internal Medicine Cardiovascular Disease; ATTEND Internal Medicine Cardiovascular Disease
DX: J40 Bronchitis, not specified as acute or chronic (principal); N28.9 Disorder of kidney and ureter, unspecified; K21.0 Gastro-esophageal reflux disease with esophagitis; N17.9 Acute kidney failure, unspecified; E86.0 Dehydration; K21.9 Gastro-esophageal reflux disease without esophagitis; R09.02 Hypoxemia; R41.82 Altered mental status, unspecified; H54.7 Unspecified visual loss; E78.00 Pure hypercholesterolemia, unspecified; I10 Essential (primary) hypertension; N40.0 Benign prostatic hyperplasia without lower urinary tract symptoms; G89.29 Other chronic pain; M54.9 Dorsalgia, unspecified; G30.9 Alzheimer's disease, unspecified; R06.02 Shortness of breath; F02.80 Dementia in other diseases classified elsewhere, unspecified severity, without behavioral disturbance, psychotic disturbance, mood disturbance, and anxiety; E03.9 Hypothyroidism, unspecified; Z87.01 Personal history of pneumonia (recurrent); R06.2 Wheezing; R07.9 Chest pain, unspecified; R10.10 Upper abdominal pain, unspecified; R19.7 Diarrhea, unspecified; R26.2 Difficulty in walking, not elsewhere classified; Z79.899 Other long term (current) drug therapy; R06.82 Tachypnea, not elsewhere classified; R05 Cough; R06.03 Acute respiratory distress; Z88.8 Allergy status to other drugs, medicaments and biological substances; E78.5 Hyperlipidemia, unspecified; R53.1 Weakness; Z51.5 Encounter for palliative care; R50.9 Fever, unspecified; D72.829 Elevated white blood cell count, unspecified
CPT/HCPCS: 36415; 71045; 80048; 81001; 83735; 85025; 86140; 87486; 87581; 87633; 87798; 87899; 93005; 94640; 96374; 96375; 99285; A9270 ×10; J2930; J7040 ×3; J7050; J7120; 71046; 71046-26; 80053; 83880; 84443; 84484; 85007; 85027; 86738; 92610-GN; 93010; 97116-GP; 97162-GP; 97166-GO; 97530-GO; 97530-GP; 99284; J0360